=== PATIENT | male | born 1955 | race Hispanic/Latino ===

== ENCOUNTER 2017-05-09 11:43 | Inpatient (IN) | payer MEDICARE ==
[2017-05-09 12:43] LABS: SQUAMOUS EPITHIAL < 1 /hpf (0-5); URINE BILIRUBIN NEGATIVE (NEGATIVE); URINE BLOOD NEGATIVE (NEGATIVE); URINE CLARITY Clear (Clear); URINE COLOR Yellow (YELLOW); URINE GLUCOSE (UA) NORMAL (Normal); URINE LEUKOCYTE ESTERASE NEG Leu/uL (Negative); URINE NITRATE NEGATIVE (NEGATIVE); URINE PROTEIN 2+ mg/dL (NEGATIVE)
[2017-05-09 12:59] LABS: BASO # 0.1 K/uL (0.0-0.2); BASO % 1.1 % (0.0-2.0); EOS # 0.1 K/uL (0.0-0.7); EOS % 0.5 % (0.0-4.0); HEMOGLOBIN 14.9 g/dL (12.0-18.0); LYMPH # 1.8 K/uL (1.0-4.3); LYMPH % 15.3 % (20.0-40.0); MEAN CELL VOLUME 82.9 fL (80.0-94.0); MEAN CORPUSCULAR HEMOGLOBIN 27.6 pg (27.0-31.0); MEAN CORPUSCULAR HGB CONC 33.3 g/dL (33.0-37.0); MEAN PLATELET VOLUME 7.4 fL (7.2-11.7); MONO # 0.9 K/uL (0.0-0.8); MONO % 7.4 % (0.0-10.0); NEUT # 8.8 K/uL (1.8-7.0); NEUT % 75.7 % (50.0-75.0); RBC 5.41 Mil/uL (4.40-5.90); RED CELL DISTRIBUTION WIDTH 17.2 % (11.5-14.5); WHITE BLOOD COUNT 11.7 K/uL (4.8-10.8)
[2017-05-09 13:05] LABS: BARBITURATES, UR NEGATIVE (NEGATIVE); PHENCYCLIDINE, UR NEGATIVE (NEGATIVE)
--- NOTE | 2017-05-09 13:07 | C.PDOC ---
History Of Present Illness 61 y/o male with history of DM presents to ED requesting detox from Heroin. PT has been using for 10 years. Patient admits to IV heroin use and reports last used this morning. Patient states he is currently on antibiotics for skin infection. Denies history of seizures with withdrawals, other drug use or ETOH use. Patient denies any physical complaints at this time. Time Seen by Provider: 05/09/17 12:28 Chief Complaint (Nursing): Substance Abuse History Per: Patient History/Exam Limitations: no limitations Onset/Duration Of Symptoms: Days Current Symptoms Are (Timing): Still Present Suicide/Self Injury Attempted (Context): None Past Medical History Reviewed: Historical Data, Nursing Documentation, Vital Signs Vital Signs: Last Vital Signs Temp 98.1 F 05/13/17 14:07 Pulse 96 H 05/13/17 14:07 Resp 18 05/13/17 14:07 BP 111/68 05/13/17 14:07 Pulse Ox 99 05/13/17 14:07 - Medical History PMH: Diabetes Surgical History: No Surg Hx Family History: States: No Known Family Hx - Social History Hx Alcohol Use: No Hx Substance Use: Yes - Immunization History Hx Tetanus Toxoid Vaccination: No Hx Influenza Vaccination: No Review Of Systems Constitutional: Negative for: Fever, Chills Cardiovascular: Negative for: Chest Pain Respiratory: Negative for: Shortness of Breath Gastrointestinal: Negative for: Nausea, Vomiting Skin: Negative for: Rash Psych: Negative for: Anxiety, Suicidal ideation Physical Exam - Physical Exam Appears: Non-toxic, No Acute Distress, Unkempt Skin: Warm, Dry, No Rash, Other ((+) diffuse scabbing at various healing stages , no surrounding erythema or discharge) Head: Atraumatic, Normacephalic Eye(s): bilateral: Normal Inspection, EOMI Nose: Normal Oral Mucosa: Moist Neck: Normal ROM, Supple Chest: Symmetrical Cardiovascular: Rhythm Regular Respiratory: Normal Breath Sounds, No Accessory Muscle Use, No Rales, No Rhonchi , No Wheezing Gastrointestinal/Abdominal: Soft, No Tenderness, No Guarding, No Rebound Extremity: Normal ROM, Capillary Refill (<2 seconds) Neurological/Psych: Oriented x3, Normal Speech ED Course And Treatment - Laboratory Results Result Diagrams: 05/09/17 12:53 05/09/17 15:46 O2 Sat by Pulse Oximetry: 99 (RA) Pulse Ox Interpretation: Normal Progress Note: Pt was seen and evaluated by health worker who discussed case with Dr Gomez and accepted pt tp detox. Disposition - Disposition Disposition: HOSPITALIZED Disposition Time: 17:00 Condition: STABLE - Clinical Impression Clinical Impression: Opioid use disorder, severe, dependence - PA / YEAST TENDER / Resident Statement MD/DO has reviewed & agrees with the documentation as recorded. - Scribe Statement The provider has reviewed the documentation as recorded by the Yovannyibcatarina Guadarrama All medical record entries made by the Jorge were at my direction and personally dictated by me. I have reviewed the chart and agree that the record accurately reflects my personal performance of the history, physical exam, medical decision making, and the department course for this patient. I have also personally directed, reviewed, and agree with the discharge instructions and disposition.
[2017-05-09 13:12] LABS: ALBUMIN 4.6 g/dL (3.5-5.0); ALT/SGPT 28 U/L (21-72); AST/SGOT 23 U/L (17-59); BLOOD UREA NITROGEN 17 mg/dL (9-20); CALCIUM 8.8 mg/dl (8.6-10.4); GFR AFRICAN-AMERICAN > 60; GFR NON-AFRICAN AMERICAN > 60
[2017-05-09 13:16] LABS: ALB/GLOB RATIO 1.1 (1.0-2.1)
[2017-05-09] MEDS ORDERED: Sodium Chloride 0.9% 1,000 ML IV ONE ×2 (13:22)
[2017-05-09 13:28] LABS: BENZODIAZEPINES, UR POSITIVE (NEGATIVE); OPIATES, UR POSITIVE (NEGATIVE)
[2017-05-09] MEDS ORDERED: Sodium Chloride 0.9% 1,000 ML ONE (15:47)
[2017-05-09 16:14] LABS: ALB/GLOB RATIO 1.2 (1.0-2.1); ALBUMIN 4.1 g/dL (3.5-5.0); ALT/SGPT 21 U/L (21-72); AST/SGOT 24 U/L (17-59); BLOOD UREA NITROGEN 18 mg/dL (9-20); CALCIUM 8.5 mg/dl (8.6-10.4); GFR AFRICAN-AMERICAN > 60; GFR NON-AFRICAN AMERICAN > 60
--- NOTE | 2017-05-09 18:07 | PCM.BM ---
<AdarshThuya - Last Filed: 05/09/17 18:04> Treatment Plan Problems - Problems identified on initial assessmt Opiates dependence Date Initiated: 05/09/17 Time Initiated: 18:00 Assessment reference: NA Treatment assets and liabiliti Patient Assests: cooperative, ADL independent, negotiates basic needs Patient Liabilities: substance abuse - Milieu Protocol Maintain good personal hygiene: daily Encourage regular showers, daily Remind patient to perform daily oral care, daily Assist patient to perform ADL's Maintain personal safety: every shift Educate patient to report safety concerns to staff, every shift Monitor environment for contraband/sharps Medication safety: Monitor for expected outcome, potential side effects: every shift, Assess barriers to learning: every shift, Assess readiness for medication education: every shift <Casey De La Garza - Last Filed: 05/10/17 14:20> - Diagnosis (1) Opioid use disorder, severe, dependence Status: Acute Interventions: 05/10/17 14:20 * Assess 7x/week regarding severity of withdrawal * Educate regarding risks, benefits, side effects and alternatives of medications * Use Motivational Interviewing for abstinence * Use CBT for relapse prevention * Medication management for withdrawal symptoms * Encourage medication assisted treatment * (2) Sedative, hypnotic or anxiolytic dependence with withdrawal, uncomplicated Status: Acute Interventions: 05/10/17 14:20 * Assess 7x/week regarding severity of withdrawal * Educate regarding risks, benefits, side effects and alternatives of medications * Use Motivational Interviewing for abstinence * Use CBT for relapse prevention * Medication management for withdrawal symptoms * Encourage medication assisted treatment *
[2017-05-09] MEDS ORDERED: Aluminum Hydroxide/Magnesium Hydroxide Susp (30 mL) PO PRN (18:46)
[2017-05-10] MEDS: Tmp-Smz 800 mg-160 mg DS Tab PO SCH ×2 (10:57→21:54)
--- NOTE | 2017-05-10 13:48 | PCM.PSYCH ---
Initial Psychiatric Evaluation - Initial Psychiatric Evaluation Type of Admission: Voluntary Legal Status: Capacity Chief Complaint (in patient's own words): "I need help" History of Present Illness and Precipitating Events: The patient is seen, chart reviewed and case discussed. This is a 61-year-old male, single with no child, on SSI for depression and lives with his girlfriend. He is here for heroin detox and he is using 10 bags sometimes less for about 10 years now. He has been to detox 3 times in the past and rehabilitation once. On top of heroin he is using Xanax 2-4 mg, sometimes more every day. He smokes cigarettes but denies all other drugs and alcohol. The patient also has history of depression and is on Zoloft 150 mg/d Past psych hx: Few admissions for depression. Not feeling suicidal now but is depressed due to his ongoing addiction. Medical hx: Denies Family psych hx is unknown Current Medications: Active Medications Generic Name Dose Route Start Last Admin Trade Name Freq PRN Reason Stop Dose Admin Al Hydrox/Mg Hydrox/Simethicone 30 ml 05/09/17 18:46 Maalox 30 Ml PO TID PRN Indigestion / Heartburn Buprenorphine HCl 8 mg 05/11/17 10:00 Subutex SL 05/16/17 09:59 .TAPER ARASELI Taper Chlordiazepoxide 25 mg 05/10/17 12:00 05/10/17 13:33 Librium PO 05/14/17 11:59 25 mg Q6 ARASELI Administration Taper Chlordiazepoxide 25 mg 05/10/17 10:14 05/10/17 10:57 Librium PO 25 mg Q4H PRN Administration Alcohol Withdrawal Clonidine HCl 0.1 mg 05/09/17 18:29 05/09/17 18:49 Catapres PO 0.1 mg Q8 PRN Administration opiate withdrawal Gabapentin 100 mg 05/10/17 10:00 05/10/17 13:19 Neurontin PO 100 mg TID ARASELI Administration Hydroxyzine HCl 25 mg 05/09/17 18:30 05/09/17 18:49 Atarax PO 25 mg Q8 PRN Administration Anxiety Ondansetron HCl 4 mg 05/09/17 18:46 Zofran Tab PO Q8 PRN Nausea/Vomiting Pneumococcal Polyvalent Vaccine 0.5 ml 05/12/17 10:00 Pneumovax 23 Vaccine IM 05/12/17 10:01 .ONCE ONE Trimethoprim/Sulfamethoxazole 1 tab 05/10/17 10:00 05/10/17 10:57 Bactrim Ds Tab PO 05/14/17 10:01 1 tab Q12H ARASELI Administration Past Psychiatric History - Past Psychiatric History Previous Treatment History: Inpatient Pertinent Medical Hx (Current Medical&Sleep Prob, Allergies): Allergies Allergy/AdvReac Type Severity Reaction Status Date / Time No Known Allergies Allergy Unverified 05/09/17 11:55 Alprazolam [Xanax] 2 mg PO HS 05/09/17 Sertraline [Zoloft] 150 mg PO DAILY 05/09/17 Sulfamethoxazole/Trimethoprim [Bactrim DS Tab] 1 tab BID 05/09/17 Review of Systems - Neurological Neurological: UNREMARKABLE - Psychiatric Psychiatric: Abnormal Sleep Pattern, Anhedonia, Anxiety, Irritability. absent: Hallucinations, Homicidal Ideation, Suicidal Ideation Mental Status Examination - Personal Presentation Personal Presentation: Looks stated age - Affect Affect: Constricted - Motor Activity Motor Activity: Calm - Reliability in Providing Information Reliability in Providing Information: Fair - Speech Speech: Organized - Mood Mood: Depressed, Anxious - Formal Thought Process Formal Thought Process: No Impairment - Cognitive Functions Orientation: Person, Place, Situation, Time Sensorium: Alert Attention/Concentration: Attentive Estimate of Intelligence: Average Judgement: Intact, as evidence by: Insight regarding need for hospitalization Memory: Recent intact, as evidence by: Ability to recall events of the day, Remote intact, as evidenced by: Abilit to recall sig. life events - Risk Risk: Diminished functioning - Strength & Assets Inventory Strength & Assets Inventory: Cooperative - Limitations Limitations: Living alone DSM 5 DX - DSM 5 DSM 5 Diagnosis: Opioid withdrawal Opioid use d/o - severe Sedative, hypnotic or anxiolytic use d/o - severe/moderate Sedative, hypnotic or anxiolytic withdrawal Depressive d/o - unspecified - Recommended/Plan of Treatment Treatment Recommendations and Plan of Treatment: Subutex detox Gabapentin for augmentation As needed medications All risks, benefits and alternatives of the meds discussed, and the pt agreed and understood. Attend groups and activities Supportive therapy and psychoeducation AK for abstinence CBT for relapse prevention Encourage MAT Refer to rehab or IOP, and self-help groups Smoking cessation with AK Nicotine patch 34 min Projected ELOS: 4-5 days Prognosis: Good with treatment Discharge Plan and Discharge Criteria: No wdw sxs Refer to rehab or IOP/MAT - Smoking Cessation Smoking Cessation Initiated: Yes
[2017-05-11] MEDS: Tmp-Smz 800 mg-160 mg DS Tab PO SCH ×2 (09:29→21:09)
[2017-05-11] MEDS ORDERED: Buprenorphine Hydrochloride 2 mg SL SCH (10:00)
--- NOTE | 2017-05-11 22:15 | PCM.PYCHPN ---
Psychiatric Progress Note - Psychiatric Progress Note Patient seen today, length of contact: 18 min Patient Chief Complaint: "I cannot sleep" Problems Identified/Issues Discussed: The pt is seen, chart reviewed, case discussed with staff. The pt is compliant with medications and reports no side-effects. Symptoms are improving but needs more time to stabilize. After care discussed, support and psychoeducation given. Medication Change: Yes (detox changes daily, add seroquel HS) Medical Record Reviewed: Yes Mental Status Examination - Cognitive Function Orientation: Person, Place, Situation, Time Memory: Intact Attention: WNL Concentration: Poor Association: WNL Fund of Knowledge: WNL - Mood Mood: Depressed, Anxious - Affect Affect: Constricted - Speech Speech: Appropriate - Formal Thought Process Formal Thought Process: No Impairment - Suicidal Ideation Suicidal Ideation: No - Homicidal Ideation Homicidal Ideation: No Goal/Treatment Plan - Goal/Treatment Plan Need for Continued Stay: Discharge may exacerbated symptoms, Severe functional impairment Progress Toward Problem(s) and Goals/Treatment Plan: methadone detox Gabapentin for augmentation As needed medications All risks, benefits and alternatives of the meds discussed, and the pt agreed and understood. Attend groups and activities Supportive therapy and psychoeducation LA for abstinence CBT for relapse prevention Encourage MAT Refer to rehab or IOP, and self-help groups Smoking cessation with LA Nicotine patch
[2017-05-12] MEDS ORDERED: Influenza Vaccine 60 mcg/0.5 mL SYR (4YR UP) IM ONE (10:00)
[2017-05-12] MEDS ORDERED: Pneumococcal 23-Valent Vaccine IM ONE (10:00)
[2017-05-12] MEDS: Tmp-Smz 800 mg-160 mg DS Tab PO SCH ×2 (10:05→22:05)
--- NOTE | 2017-05-12 17:39 | PCM.PYCHPN ---
Psychiatric Progress Note - Psychiatric Progress Note Patient seen today, length of contact: 16 min Patient Chief Complaint: "I am OK" Problems Identified/Issues Discussed: The pt is seen, chart reviewed, case discussed with staff. Support given, CBT and OH used briefly No new symptoms reported, improving slowly and needs more time No SEs from medications, risks discussed. After care discussed Medication Change: Yes (detox changes daily) Medical Record Reviewed: Yes Mental Status Examination - Cognitive Function Orientation: Person, Place, Situation, Time Memory: Intact Attention: WNL Concentration: Poor Association: WNL Fund of Knowledge: WNL - Mood Mood: Depressed, Anxious - Affect Affect: Constricted - Speech Speech: Appropriate - Formal Thought Process Formal Thought Process: No Impairment - Suicidal Ideation Suicidal Ideation: No - Homicidal Ideation Homicidal Ideation: No Goal/Treatment Plan - Goal/Treatment Plan Need for Continued Stay: Discharge may exacerbated symptoms, Severe functional impairment Progress Toward Problem(s) and Goals/Treatment Plan: methadone detox Gabapentin for augmentation As needed medications All risks, benefits and alternatives of the meds discussed, and the pt agreed and understood. Attend groups and activities Supportive therapy and psychoeducation OH for abstinence CBT for relapse prevention Encourage MAT Refer to rehab or IOP, and self-help groups Smoking cessation with OH Nicotine patch
[2017-05-13] MEDS ORDERED: Vitamins A & D Oint UD Foilpak TOP PRN (09:07)
[2017-05-13] MEDS: Tmp-Smz 800 mg-160 mg DS Tab PO SCH (11:28)
--- NOTE | 2017-05-13 20:21 | PCM.PYCHPN ---
Psychiatric Progress Note - Psychiatric Progress Note Patient seen today, length of contact: 15 minutes Patient Chief Complaint: I'm feeling better. Can I get my Zoloft. Problems Identified/Issues Discussed: patient seen, chart reviewed, case discussed with the staff. Issues related to illness and treatment were discussed with the patient and staff. Reported compliant with treatment with No adverse affects. Patient reported feeling better, requesting for his Zoloft. Patient reported he is on Zoloft 150 mg daily. We'll start. Aftercare discussed with the patient. Patient wants to go to [facility] after discharge from the hospital for follow-up care. At the time of evaluation, patient was awake alert and oriented 3, no delusions , no auditory or visual hallucinations, no suicidal ideations or homicidal ideations. Medical Problems: None reported Diagnostic Results: Reviewed DSM 5 Symptoms Update: Improving with treatment Medication Change: Yes (Started Zoloft 150 mg daily) Medical Record Reviewed: Yes Mental Status Examination - Cognitive Function Orientation: Person, Place, Situation, Time Memory: Intact Attention: WNL Concentration: WNL Association: WNL Fund of Knowledge: [facility] Decription of patient's judgement and insights: Fair - Mood Mood: Anxious - Affect Affect: Other (Appropriate) - Speech Speech: Appropriate - Formal Thought Process Formal Thought Process: No Impairment Psychotic Thoughts and Behaviors: None - Suicidal Ideation Suicidal Ideation: No - Homicidal Ideation Homicidal Ideation: No Goal/Treatment Plan - Goal/Treatment Plan Need for Continued Stay: Remain at risks for inpatient hospitalization, Discharge may exacerbated symptoms, Severe functional impairment Progress Toward Problem(s) and Goals/Treatment Plan: Patient education. Supportive therapy. Motivational interview for abstinence. CBT for relapse prevention. Continue treatment as before. Patient will go to [facility] for follow-up care after discharge from the hospital. Estimated Date of D/C: 05/15/17 - Smoking Cessation Smoking Cessation Initiated: No
[2017-05-14 06:43] VITALS: O2SAT 100
[2017-05-14 08:43] VITALS: BP 133/91; PULSE 98; RESP 20; TEMP 98.5
--- NOTE | 2017-05-14 17:06 | PCM.PYCHDC ---
Mental Status Examination - Mental Status Examination Orientation: Person, Place, Situation, Time Memory: Intact Mood: Neutral Affect: Other (Appropriate) Speech: Appropriate Attention: WNL Concentration: WNL Association: WNL Fund of Knowledge: WNL Formal Thought Process: No Impairment Description of patient's judgement and insight: Fair Psychotic Thoughts and Behaviors: None Suicidal Ideation: No Current Homicidal Ideation?: No Discharge Summary - Discharge Note Reason for Hospitalization: Opiate and benzo use Laboratory Data: Reviewed Consultations:: List each consultation separately and include: 1. Reason for request. 2. Findings. 3. Follow-up Summary of Hospital Course include:: 1. Description of specific treatment plan utilized for patients during their course of treatmen. 2. Summarize the time- course for resolution of acute symptoms and/or regressed behaviors. 3. Describe issues identified and worked on during hospitalization. 4. Describe medication utilized. 5. Describe medical problems identified and treated. 6. Reassessment of suicide risk Summary of Hospital Course: The patient is seen, chart reviewed and case discussed. This is a 61-year-old male, single with no child, on SSI for depression and lives with his girlfriend. He is here for heroin detox and he is using 10 bags sometimes less for about 10 years now. He has been to detox 3 times in the past and rehabilitation once. On top of heroin he is using Xanax 2-4 mg, sometimes more every day. He smokes cigarettes but denies all other drugs and alcohol. The patient also has history of depression and is on Zoloft 150 mg/d Past psych hx: Few admissions for depression. Not feeling suicidal now but is depressed due to his ongoing addiction. Medical hx: Denies During his stay in the hospital patient was treated with methadone and Librium. He also got other medications including Seroquel, Zoloft, gabapentin and other when necessary medications. Patient started feeling better with above treatment. Patient attended groups and other activities on the unit as part of his treatment. Today patient was stable. His scheduled day of discharge was tomorrow but patient requested discharge for today. Patient was stable, had no withdrawal symptoms. Patient was discharged. At the time of evaluation and discharge, patient was awake alert oriented 3, had no delusions, no auditory or visual hallucinations, no suicidal ideations or homicidal ideations. Patient was discharged in a stable condition. Patient will have follow-up at [facility]. - Final Diagnosis (DSM 5) Condition upon Discharge: STABLE Disposition: HOME/ ROUTINE Follow-up Treatment Plan: Patient will go to [facility]ad[facility] for follow-up care after discharge from the hospital. Prescriptions/Medication Reconciliation: Gabapentin [Neurontin] 100 mg PO TID #90 cap QUEtiapine [Seroquel] 100 mg PO HS #30 tab Sertraline [Zoloft] 150 mg PO DAILY #30 tab - Smoking Cessation Smoking Cessation Medication prescribed: No - Antipsychotic Medications Pt discharged on 2 or more routine antipsychotic medications: No
== END 2017-05-14 11:20 | disposition home or self-care (01) | DRG 895 ==
LOC: C.ER 11:43 → C.7D 16:49
PROVIDERS: ADMIT Psychiatry & Neurology Psychiatry; ATTEND Psychiatry & Neurology Psychiatry
PROC: HZ2ZZZZ Detoxification Services for Substance Abuse Treatment (ICD-10-PCS; principal; 2017-05-09)
PROC: HZ52ZZZ Individual Psychotherapy for Substance Abuse Treatment, Cognitive-Behavioral (ICD-10-PCS; 2017-05-09)
PROC: HZ42ZZZ Group Counseling for Substance Abuse Treatment, Cognitive-Behavioral (ICD-10-PCS; 2017-05-09)
PROC: HZ59ZZZ Individual Psychotherapy for Substance Abuse Treatment, Supportive (ICD-10-PCS; 2017-05-09)
PROC: HZ56ZZZ Individual Psychotherapy for Substance Abuse Treatment, Psychoeducation (ICD-10-PCS; 2017-05-09)
PROC: HZ46ZZZ Group Counseling for Substance Abuse Treatment, Psychoeducation (ICD-10-PCS; 2017-05-09)
DX: F11.23 Opioid dependence with withdrawal (principal); F10.230 Alcohol dependence with withdrawal, uncomplicated; Y90.0 Blood alcohol level of less than 20 mg/100 ml; F13.230 Sedative, hypnotic or anxiolytic dependence with withdrawal, uncomplicated; F32.9 Major depressive disorder, single episode, unspecified; F17.210 Nicotine dependence, cigarettes, uncomplicated

== ENCOUNTER 2017-05-19 15:45 | Inpatient (IN) | payer MEDICARE ==
--- NOTE | 2017-05-19 19:14 | C.PDOC ---
History Of Present Illness 61 y/o male presents to the ER upon referral of , PCP, for skin infections with ulcerations. Patient states that he went to 's office yesterday and he recommended that he become admitted in the hospital.Patient admits to using heroin in the morning today but denies shooting drugs into his legs. Patient denies having back pain and other complaints. Time Seen by Provider: 05/19/17 19:12 Chief Complaint (Nursing): Abnormal Skin Integrity History Per: Patient History/Exam Limitations: no limitations Onset/Duration Of Symptoms: Days Current Symptoms Are (Timing): Still Present Severity: Moderate Past Medical History Reviewed: Historical Data, Nursing Documentation, Vital Signs Vital Signs: Last Vital Signs Temp 98.6 F 05/19/17 15:58 Pulse 117 H 05/19/17 15:58 Resp 20 05/19/17 15:58 BP 119/72 05/19/17 15:58 Pulse Ox 98 05/19/17 20:47 - Medical History PMH: Anxiety, Bipolar Disorder, Depression, Diabetes Denies: Hepatitis, HIV, HTN, Seizures, Sexually Transmitted Disease Other Surgeries: Hx of surgeries - [facility] Procedures DETOXIFICATION SERVICES FOR SUBSTANCE ABUSE TREATMENT (05/09/17) GROUP SURVEY RESEARCH MANAGER FOR SUBSTANCE ABUSE TREATMENT, PSYCHOEDUCATION (05/09/17) GROUP SURVEY RESEARCH MANAGER FOR SUBSTANCE ABUSE, COGNITIVE BEHAVIORAL (05/09/17) INDIV PSYCHOTHERAPY FOR SUBSTANCE ABUSE TREATMENT, SUPPORT (05/09/17) INDIV PSYCHOTHERAPY FOR SUBSTANCE ABUSE, COGNITIV BEHAVIORAL (05/09/17) INDIV PSYCHOTHERAPY FOR SUBSTANCE ABUSE, PSYCHOEDUCATION (05/09/17) Family History: States: No Known Family Hx - Social History Hx Alcohol Use: No Hx Substance Use: Yes (benzos, opioids) - Immunization History Hx Tetanus Toxoid Vaccination: No Hx Influenza Vaccination: No Review Of Systems Except As Marked, All Systems Reviewed And Found Negative. Constitutional: Negative for: Fever, Chills Musculoskeletal: Negative for: Back Pain Skin: Positive for: Other (ulcerations) Physical Exam - Physical Exam Appears: No Acute Distress, Other (tremulous) Skin: Normal Color, Warm, Other (diffuse cellulitis in bilateral upper extremities, ulcers in bilateral upper extremities) Head: Atraumatic, Normacephalic Eye(s): bilateral: Normal Inspection Nose: Normal Oral Mucosa: Moist Neck: Supple Chest: Symmetrical Cardiovascular: Rhythm Regular, No Murmur Respiratory: Normal Breath Sounds, No Accessory Muscle Use, No Rales, No Rhonchi , No Wheezing Neurological/Psych: Oriented x3, Normal Speech ED Course And Treatment - Laboratory Results Result Diagrams: 05/19/17 20:22 05/19/17 20:22 O2 Sat by Pulse Oximetry: 98 (RA) Pulse Ox Interpretation: Normal - Radiology CXR: Interpreted by Me, Viewed By Me CXR Interpretation: Yes: No Acute Disease Central Line Placement - Central Line Placement Indication: Unable To Obtain Adequate Peripheral Access Central Line Placement: Right: Internal Jugular The Area Was Thoroughly Prepared With: Draped Using Sterile Technique Area Was Locally Anesthetized With: Lidocaine 1% Procedure: Triple Lumen (under US guidance , 7 english placed at Right IJ, good blood return, fluid flowing through IV), Sterile Dressing Placed Over Line, Procedure Tolerated Well, CXR Ordered To Confirm Placement Medical Decision Making Medical Decision Making: Plan: --Labs --CXR Central line procedure done to be able to obtain labs. Disposition - Disposition Disposition Time: 21:00 Condition: FAIR - Clinical Impression Clinical Impression: Cellulitis, Opioid use disorder, severe, dependence - Scribe Statement The provider has reviewed the documentation as recorded by the Jorge Gray Provider Attestation: All medical record entries made by the Yovannyibcatarina were at my direction and personally dictated by me. I have reviewed the chart and agree that the record accurately reflects my personal performance of the history, physical exam, medical decision making, and the department course for this patient. I have also personally directed, reviewed, and agree with the discharge instructions and disposition. Decision To Admit - Pt Status Changed To: Hospital Disposition Of: Inpatient - Admit Certification Admit to Inpatient:: After my assessment, the patient will require hospitalization for at least two midnights. This is because of the severity of symptoms shown, intensity of services needed, and/or the medical risk in this patient being treated as an outpatient. - InPatient: Physician Admission Certification: I certify that this patient requires 2 or more midnights of care for the following reason:: cellulitis extensive - . Bed Request Type: Regular Admitting Physician: Floyd Botello Patient Diagnosis: Cellulitis, Opioid use disorder, severe, dependence
[2017-05-19 20:28] LABS: BASO % 0.5 % (0.0-2.0); EOS # 0.2 K/uL (0.0-0.7); EOS % 2.2 % (0.0-4.0); HEMOGLOBIN 10.7 g/dL (12.0-18.0); LYMPH % 13.9 % (20.0-40.0); MEAN CELL VOLUME 82.9 fL (80.0-94.0); MEAN CORPUSCULAR HEMOGLOBIN 28.2 pg (27.0-31.0); MEAN PLATELET VOLUME 7.2 fL (7.2-11.7); MONO # 0.5 K/uL (0.0-0.8); MONO % 7.5 % (0.0-10.0); NEUT # 5.3 K/uL (1.8-7.0); NEUT % 75.9 % (50.0-75.0); RBC 3.79 Mil/uL (4.40-5.90); RED CELL DISTRIBUTION WIDTH 17.4 % (11.5-14.5); WHITE BLOOD COUNT 7.1 K/uL (4.8-10.8)
[2017-05-19] MEDS ORDERED: cefTRIAXone 1 gm in Water For Injection 2.1 ML IM ONE (20:32)
[2017-05-19 20:35] LABS: URINE BILIRUBIN NEGATIVE (NEGATIVE); URINE BLOOD NEGATIVE (NEGATIVE); URINE CLARITY Clear (Clear); URINE COLOR Straw (YELLOW); URINE GLUCOSE (UA) NORMAL (Normal); URINE LEUKOCYTE ESTERASE NEG Leu/uL (Negative); URINE NITRATE NEGATIVE (NEGATIVE); URINE PROTEIN NEGATIVE (NEGATIVE); URINE UROBILINOGEN NORMAL mg/dL (0.2-1.0)
[2017-05-19 20:36] LABS: INR 1.1
[2017-05-19] MEDS ORDERED: cefTRIAXone IV 1 gm in Dextros 50 ML IVPB ONE (20:39)
[2017-05-19 20:41] LABS: ALB/GLOB RATIO 1.2 (1.0-2.1); ALBUMIN 3.3 g/dL (3.5-5.0); ALT/SGPT 23 U/L (21-72); AST/SGOT 17 U/L (17-59); BLOOD UREA NITROGEN 6 mg/dL (9-20); CALCIUM 8.3 mg/dl (8.6-10.4); GFR AFRICAN-AMERICAN > 60; GFR NON-AFRICAN AMERICAN > 60
[2017-05-19] MEDS ORDERED: Vancomycin 1 gm/NS 200 ml 1 GM/200 ML BAG IVPB ONE (21:00)
[2017-05-20 00:22] LABS: BARBITURATES, UR NEGATIVE (NEGATIVE); PHENCYCLIDINE, UR NEGATIVE (NEGATIVE)
[2017-05-20 00:23] LABS: BENZODIAZEPINES, UR POSITIVE (NEGATIVE); OPIATES, UR POSITIVE (NEGATIVE)
[2017-05-20] MEDS: Multiple Vitamins Tab PO SCH (11:04)
[2017-05-20] MEDS: Vancomycin 1 gm/NS 200 ml 1 GM/200 ML BAG IVPB SCH ×2 (11:05→21:34)
[2017-05-20] MEDS: Enoxaparin 40 mg Syringe SC SCH (11:05)
--- NOTE | 2017-05-20 12:31 | RAD ---
PROCEDURE: CHEST RADIOGRAPH, 1 VIEW HISTORY: SOB COMPARISON: No prior study available for comparison FINDINGS: LUNGS: Mild atelectasis seen in the both mid to lower lung hernandez. PLEURA: No pneumothorax or pleural fluid seen. CARDIOVASCULAR: Normal. OSSEOUS STRUCTURES: No significant abnormalities. VISUALIZED UPPER ABDOMEN: Normal. OTHER FINDINGS: None. IMPRESSION: Mild atelectasis both mid to lower lung zones.
--- NOTE | 2017-05-20 12:33 | RAD ---
HISTORY: Sepsis Patient COMPARISON: Comparison chest 05/19/2017 FINDINGS: Interval placement right IJ central line with tip in the SVC. LUNGS: Mild bibasilar atelectasis. PLEURA: No significant pleural effusion identified, no pneumothorax apparent. CARDIOVASCULAR: Normal. OSSEOUS STRUCTURES: No significant abnormalities. VISUALIZED UPPER ABDOMEN: Normal. OTHER FINDINGS: None. IMPRESSION: Interval placement right IJ central line with tip in the SVC. No evidence of pneumothorax. Mild bibasilar atelectasis.
[2017-05-20] MEDS ORDERED: Piperacill/Tazo 3.375gm in Dex 3.375 GM/50 ML BAG IVPB SCH (16:00)
--- NOTE | 2017-05-20 17:39 | CP.PCM.HP ---
Past Patient History - Infectious Disease Hx of Infectious Diseases: None - Past Medical History & Family History Past Medical History?: Yes - Past Social History Smoking Status: Heavy Smoker > 10 Cigarettes Daily - CARDIAC Hx Cardiac Disorders: No Hx Hypertension: No - PULMONARY Hx Respiratory Disorders: No Hx Tuberculosis: No - NEUROLOGICAL Hx Neurological Disorder: No Hx Seizures: No - HEENT Hx HEENT Problems: No - RENAL Hx Chronic Kidney Disease: No - ENDOCRINE/METABOLIC Hx Endocrine Disorders: Yes Hx Diabetes Mellitus Type 2: Yes - HEMATOLOGICAL/ONCOLOGICAL Hx Blood Disorders: No Hx Human Immunodeficiency Virus (HIV): No - INTEGUMENTARY Hx Dermatological Problems: Yes Other/Comment: Noted some lesions on arms and legs and currently on BACTRIM - MUSCULOSKELETAL/RHEUMATOLOGICAL Hx Musculoskeletal Disorders: No Hx Falls: No - GASTROINTESTINAL Hx Gastrointestinal Disorders: Yes Hx Nausea: Yes - GENITOURINARY/GYNECOLOGICAL Hx Genitourinary Disorders: No Hx Sexually Transmitted Disorders: No - PSYCHIATRIC Hx Psychophysiologic Disorder: Yes Hx Anxiety: Yes Hx Bipolar Disorder: Yes Hx Depression: Yes Hx Substance Use: Yes (benzos, opioids) - SURGICAL HISTORY Hx Surgeries: Yes Hx Orthopedic Surgery: Yes Other/Comment: Lt. knee surgery - ANESTHESIA Hx Anesthesia: Yes Hx Anesthesia Reactions: No Hx Malignant Hyperthermia: No Meds Allergies/Adverse Reactions: Allergies Allergy/AdvReac Type Severity Reaction Status Date / Time No Known Allergies Allergy Verified 05/19/17 16:03 Results - Vital Signs Recent Vital Signs: Last Vital Signs Temp 98.4 F 05/20/17 16:00 Pulse 76 05/20/17 16:00 Resp 20 05/20/17 16:00 BP 124/69 05/20/17 16:00 Pulse Ox 99 05/20/17 16:00 - Labs Result Diagrams: 05/19/17 20:22 05/19/17 20:22 Labs: Laboratory Results - last 24 hr 05/19/17 05/19/17 05/19/17 19:40 20:22 20:22 WBC 7.1 RBC 3.79 L Hgb 10.7 L D Hct 31.4 L MCV 82.9 MCH 28.2 MCHC 34.0 RDW 17.4 H Plt Count 160 D MPV 7.2 Neut % (Auto) 75.9 H Lymph % (Auto) 13.9 L [place] % (Auto) 7.5 Eos % (Auto) 2.2 Baso % (Auto) 0.5 Neut # (Auto) 5.3 Lymph # (Auto) 1.0 [place] # (Auto) 0.5 Eos # (Auto) 0.2 Baso # (Auto) 0.0 ESR 35 H PT 12.0 INR 1.1 APTT 41 H Sodium Potassium Chloride Carbon Dioxide Anion Gap BUN Creatinine Est GFR ( Amer) Est GFR (Non-Af Amer) Random Glucose Lactic Acid Calcium Total Bilirubin AST ALT Alkaline Phosphatase C-React Prot High Sens > 15.00 H Total Protein Albumin Globulin Albumin/Globulin Ratio Urine Color Urine Clarity Urine pH Ur Specific [place] Urine Protein Urine Glucose (UA) Urine Ketones Urine Blood Urine Nitrate Urine Bilirubin Urine Urobilinogen Ur Leukocyte Esterase Urine WBC (Auto) Urine RBC (Auto) Urine Opiates Screen Urine Methadone Screen Ur Barbiturates Screen Ur Phencyclidine Scrn Ur Amphetamines Screen U Benzodiazepines Scrn U Oth Cocaine Metabols U Cannabinoids Screen 05/19/17 05/19/17 05/19/17 20:22 20:22 20:22 WBC RBC Hgb Hct MCV MCH MCHC RDW Plt Count MPV Neut % (Auto) Lymph % (Auto) [place] % (Auto) Eos % (Auto) Baso % (Auto) Neut # (Auto) Lymph # (Auto) [place] # (Auto) Eos # (Auto) Baso # (Auto) ESR PT INR APTT Sodium 133 Potassium 3.7 Chloride 97 L Carbon Dioxide 29 Anion Gap 10 BUN 6 L Creatinine 0.8 Est GFR ( Amer) > 60 Est GFR (Non-Af Amer) > 60 Random Glucose 82 Lactic Acid 0.5 L Calcium 8.3 L Total Bilirubin 0.4 AST 17 D ALT 23 Alkaline Phosphatase 61 C-React Prot High Sens Total Protein 6.1 L Albumin 3.3 L Globulin 2.8 Albumin/Globulin Ratio 1.2 Urine Color Straw Urine Clarity Clear Urine pH 7.0 Ur Specific [place] 1.003 Urine Protein Negative Urine Glucose (UA) Normal Urine Ketones Negative Urine Blood Negative Urine Nitrate Negative Urine Bilirubin Negative Urine Urobilinogen Normal Ur Leukocyte Esterase Neg Urine WBC (Auto) < 1 Urine RBC (Auto) 2 Urine Opiates Screen Urine Methadone Screen Ur Barbiturates Screen Ur Phencyclidine Scrn Ur Amphetamines Screen U Benzodiazepines Scrn U Oth Cocaine Metabols U Cannabinoids Screen 05/20/17 00:03 WBC RBC Hgb Hct MCV MCH MCHC RDW Plt Count MPV Neut % (Auto) Lymph % (Auto) [place] % (Auto) Eos % (Auto) Baso % (Auto) Neut # (Auto) Lymph # (Auto) [place] # (Auto) Eos # (Auto) Baso # (Auto) ESR PT INR APTT Sodium Potassium Chloride Carbon Dioxide Anion Gap BUN Creatinine Est GFR ( Amer) Est GFR (Non-Af Amer) Random Glucose Lactic Acid Calcium Total Bilirubin AST ALT Alkaline Phosphatase C-React Prot High Sens Total Protein Albumin Globulin Albumin/Globulin Ratio Urine Color Urine Clarity Urine pH Ur Specific [place] Urine Protein Urine Glucose (UA) Urine Ketones Urine Blood Urine Nitrate Urine Bilirubin Urine Urobilinogen Ur Leukocyte Esterase Urine WBC (Auto) Urine RBC (Auto) Urine Opiates Screen Positive H Urine Methadone Screen Negative Ur Barbiturates Screen Negative Ur Phencyclidine Scrn Negative Ur Amphetamines Screen Negative U Benzodiazepines Scrn Positive U Oth Cocaine Metabols Negative U Cannabinoids Screen Negative
[2017-05-20] MEDS: Piperacillin/Tazobact 3.375 GM in Sodium Chloride 0.9% 100 ML IVPB SCH (23:32)
[2017-05-21] MEDS: Piperacillin/Tazobact 3.375 GM in Sodium Chloride 0.9% 100 ML IVPB SCH ×2 (08:16→17:00)
[2017-05-21] MEDS: Vancomycin 1 gm/NS 200 ml 1 GM/200 ML BAG IVPB SCH ×2 (09:56→21:07)
[2017-05-21] MEDS: Multiple Vitamins Tab PO SCH (09:59)
[2017-05-21] MEDS: Enoxaparin 40 mg Syringe SC SCH (10:00)
--- NOTE | 2017-05-21 14:16 | CP.PCM.PN ---
Subjective - Date & Time of Evaluation Date of Evaluation: 05/21/17 Time of Evaluation: 14:16 Objective - Vital Signs/Intake and Output Vital Signs (last 24 hours): Temp Pulse Resp BP Pulse Ox 99 F 92 H 20 153/89 H 97 05/21/17 10:06 05/21/17 08:20 05/21/17 08:20 05/21/17 08:20 05/21/17 08:20 Intake and Output: 05/21/17 05/21/17 06:59 18:59 Output Total 400 Balance -400 - Medications Medications: Current Medications Enoxaparin Sodium (Lovenox) 40 mg SC DAILY [facility] Last Admin: 05/21/17 10:00 Dose: 40 mg Folic Acid (Folic Acid) 1 mg PO DAILY [facility] Last Admin: 05/21/17 10:00 Dose: 1 mg Gabapentin (Neurontin) 100 mg PO TID [facility] Last Admin: 05/21/17 10:00 Dose: 100 mg Vancomycin/Sodium Chloride (Vancomycin 1 Gm/Ns 200 Ml) 1 gm in 200 mls @ 166.7 mls/hr IVPB Q12 [facility] Stop: 05/25/17 10:01 Last Admin: 05/21/17 09:56 Dose: 166.7 mls/hr Piperacillin Sod/Tazobactam (Sod 3.375 gm/ Sodium Chloride) 100 mls @ 200 mls/ hr IVPB Q8H [facility] Last Admin: 05/21/17 08:16 Dose: 200 mls/hr Multivitamins (Hexavitamin) 1 tab PO DAILY [facility] Last Admin: 05/21/17 09:59 Dose: 1 tab Pneumococcal Polyvalent Vaccine (Pneumovax 23 Vaccine) 0.5 ml IM .ONCE ONE Stop: 05/23/17 12:01 Quetiapine Fumarate (Seroquel) 100 mg PO HS [facility] Last Admin: 05/20/17 21:33 Dose: 100 mg Sertraline HCl (Zoloft) 150 mg PO DAILY [facility] Last Admin: 05/21/17 09:59 Dose: 150 mg Thiamine HCl (Vitamin B1 Tab) 100 mg PO DAILY [facility] Last Admin: 05/21/17 10:00 Dose: 100 mg - Labs Labs: 05/19/17 20:22 05/19/17 20:22 PT 12.0 SECONDS (9.7-12.2) 05/19/17 20:22 INR 1.1 05/19/17 20:22 APTT 41 SECONDS (21-34) H 05/19/17 20:22
--- NOTE | 2017-05-21 14:34 | PCM.PSYCH ---
Initial Psychiatric Evaluation - Initial Psychiatric Evaluation Type of Admission: Voluntary Legal Status: Capacity Current Medications: Active Medications Generic Name Dose Route Start Last Admin Trade Name Mazinq PRN Reason Stop Dose Admin Enoxaparin Sodium 40 mg 05/20/17 10:00 05/21/17 10:00 Lovenox SC 40 mg DAILY [facility] Administration Folic Acid 1 mg 05/20/17 10:00 05/21/17 10:00 Folic Acid PO 1 mg DAILY [facility] Administration Gabapentin 100 mg 05/20/17 10:00 05/21/17 10:00 Neurontin PO 100 mg TID [facility] Administration Vancomycin/Sodium Chloride 1 gm in 200 mls @ 166.7 mls/hr 05/20/17 10:00 08/02 09:56 Vancomycin 1 Gm/Ns 200 Ml IVPB 05/25/17 10:01 166.7 mls/hr Q12 [facility] Administration Piperacillin Sod/Tazobactam 100 mls @ 200 mls/hr 05/21/17 00:00 05/21/17 08: 16 Sod 3.375 gm/ Sodium Chloride IVPB 200 mls/hr Q8H [facility] Administration Multivitamins 1 tab 05/20/17 10:00 05/21/17 09:59 Hexavitamin PO 1 tab DAILY [facility] Administration Pneumococcal Polyvalent Vaccine 0.5 ml 05/23/17 12:00 Pneumovax 23 Vaccine IM 05/23/17 12:01 .ONCE ONE Quetiapine Fumarate 100 mg 05/20/17 22:00 05/20/17 21:33 Seroquel PO 100 mg HS [facility] Administration Sertraline HCl 150 mg 05/20/17 10:00 05/21/17 09:59 Zoloft PO 150 mg DAILY [facility] Administration Thiamine HCl 100 mg 05/20/17 10:00 05/21/17 10:00 Vitamin B1 Tab PO 100 mg DAILY [facility] Administration Past Psychiatric History - Past Psychiatric History Previous Treatment History: Inpatient Pertinent Medical Hx (Current Medical&Sleep Prob, Allergies): Allergies Allergy/AdvReac Type Severity Reaction Status Date / Time No Known Allergies Allergy Verified 05/19/17 16:03 Gabapentin [Neurontin] 100 mg PO TID #90 cap 05/14/17 QUEtiapine [Seroquel] 100 mg PO HS #30 tab 05/14/17 Sertraline [Zoloft] 150 mg PO DAILY #30 tab 05/14/17 Review of Systems - Review of Systems All systems: reviewed and no additional remarkable complaints except - Psychiatric Psychiatric: Anxiety, Irritability. absent: Suicidal Ideation Mental Status Examination - Personal Presentation Personal Presentation: Looks stated age - Affect Affect: Constricted - Motor Activity Motor Activity: Calm - Reliability in Providing Information Reliability in Providing Information: Good - Speech Speech: Organized - Mood Mood: Anxious - Formal Thought Process Formal Thought Process: No Impairment - Obsessions/Compulsions Obsessions: No Compulsions: No - Cognitive Functions Orientation: Person, Place, Situation, Time Sensorium: Alert Attention/Concentration: Attentive Abstract Thinking: [place] Estimate of Intelligence: Below average Judgement: Imparied, as evidence by: Poor judgement, Intact, as evidence by: Insight regarding need for hospitalization - Risk Risk: Diminished functioning - Strength & Assets Inventory Strength & Assets Inventory: Cooperative DSM 5 DX - DSM 5 DSM 5 Diagnosis: Opiate use disorder severe Opiate withdrawal 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
--- NOTE | 2017-05-21 16:45 | CP.PCM.CON ---
History of Present Illness - History of Present Illness History of Present Illness: 61 y/o male presents to the ER upon referral of , PCP, for skin infections with ulcerations. Patient states that he went to 's office yesterday and he recommended that he become admitted in the hospital.Patient admits to using heroin in the morning today but denies shooting drugs into his legs. Patient denies having back pain and other complaints. IV rx in progress pending cultures - Medical History PMH: Anxiety, Bipolar Disorder, Depression, Diabetes Denies: Hepatitis, HIV, HTN, Seizures, Sexually Transmitted Disease Other Surgeries: Hx of surgeries Review of Systems - Constitutional Constitutional: As Per HPI, Chills, Fever - EENT Eyes: absent: As Per HPI, Blind Spots, Blurred Vision, Change in Vision, Decreased Night Vision, Diplopia, Discharge, Dry Eye, Exophthalmos, Floaters, Irritation, Itchy Eyes, Loss of Peripheral Vision, Pain, Photophobia, Requires Corrective Lenses, Sees Flashes, Spots in Vision, Tunnel Vision, Other Visual Disturbances, Loss of Vision, Other Ears: absent: As Per HPI, Decreased Hearing, Ear Discharge, Ear Pain, Tinnitus, Abnormal Hearing, Disequilibrium, Dizziness, Other Nose/Mouth/Throat: absent: As Per HPI, Epistaxis, Nasal Congestion, Nasal Discharge, Nasal Obstruction, Nasal Trauma, Nose Pain, Post Nasal Drip, Sinus Pain, Sinus Pressure, Bleeding Gums, Change in Voice, Dental Pain, Dry Mouth, Dysphagia, Halitosis, Hoarsness, Lip Swelling, Mouth Lesions, Mouth Pain, Odynophagia, Sore Throat, Throat Swelling, Tongue Swelling, Facial Pain, Neck Pain, Neck Mass, Other - Cardiovascular Cardiovascular: absent: As Per HPI, Acrocyanosis, Chest Pain, Chest Pain at Rest , Chest Pain with Activity, Claudication, Diaphoresis, Dyspnea, Dyspnea on Exertion, Edema, Irregular Heart Rhythm, Pain Radiating to Arm/Neck/Jaw, Leg Edema, Leg Ulcers, Lightheadedness, Orthopnea, Palpitations, Paroxysmal Nocturnal Dyspnea, Pedal Edema, Radiating Pain, Rapid Heart Rate, Slow Heart Rate, Syncope, Other - Respiratory Respiratory: absent: As Per HPI, Cough, Dyspnea, Hemoptysis, Dyspnea on Exertion , Wheezing, Snoring, Stridor, Pain on Inspiration, Chest Congestion, Excessive Mucous Production, Change in Mucous Color, Pain with Coughing, Other - Gastrointestinal Gastrointestinal: absent: As Per HPI, Abdominal Pain, Belching, Bloating, Change in Bowel Habits, Change in Stool Character, Coffee Ground Emesis, Constipation, Cramping, Diarrhea, Dyspepsia, Dysphagia, Early Satiety, Excessive Flatus, Fecal Incontinence, Heartburn, Hematemesis, Hematochezia, Loose Stools, Melena, Nausea, Odynophagia, Temesmus, Vomiting, Other - Genitourinary Genitourinary: absent: As Per HPI, Change in Urinary Stream, Difficulty Urinating, Dysuria, Flank Pain, Hematuria, Pyuria, Nocturia, Urinary Incontinence, Urinary Frequency, Urinary Hesitance, Urinary Urgency, Voiding Freq/Small Amts, Freq UTI, Hx Renal/Bladder Calculi, Hx /Renal Surgery, Bladder Distension, Other - Musculoskeletal Musculoskeletal: As Per HPI - Integumentary Integumentary: As Per HPI, Skin Pain, Wounds - Neurological Neurological: absent: As Per HPI, Abnormal Gait, Abnormal Hearing, Abnormal Movements, Abnormal Speech, Behavioral Changes, Burning Sensations, Confusion, Convulsions, Disequilibrium, Dizziness, Numbness, Focal Weakness, Frequent Falls , Headaches, Lack of Coordination, Loss of Vision, Memory Loss, Paresthesias, Radicular Pain, Restless Legs, Sensory Deficit, Syncope, Tingling, Tremor, Vertigo, Weakness, Other Visual Disturbances, Other - Psychiatric Psychiatric: absent: As Per HPI, Abnormal Sleep Pattern, Anhedonia, Anxiety, Auditory Hallucinations, Behavioral Changes, Change in Appetite, Change in Libido, Confusion, Depression, Difficulty Concentrating, Hallucinations, Homicidal Ideation, Hopelessness, Irritability, Memory Loss, Mood Swings, Panic Attacks, Paranoia, Suicidal Ideation, Visual Hallucinations, Tactile Hallucinations, Other - Endocrine Endocrine: absent: As Per HPI, Change in Body Appearance, Change in Libido, Cold Intolorance, Deepening of Voice, Excessive Sweating, Fatigue, Flushing, Heat Intolorance, Increase in Ring/Shoe/Hat Size, Palpitations, Polydipsia, Polyphagia, Polyuria, Other - Hematologic/Lymphatic Hematologic: absent: As Per HPI, Easy Bleeding, Easy Bruising, Lymphadenopathy, Other Past Patient History - Infectious Disease Hx of Infectious Diseases: None - Past Medical History & Family History Past Medical History?: Yes - Past Social History Smoking Status: Heavy Smoker > 10 Cigarettes Daily - CARDIAC Hx Cardiac Disorders: No Hx Hypertension: No - PULMONARY Hx Respiratory Disorders: No Hx Tuberculosis: No - NEUROLOGICAL Hx Neurological Disorder: No Hx Seizures: No - HEENT Hx HEENT Problems: No - RENAL Hx Chronic Kidney Disease: No - ENDOCRINE/METABOLIC Hx Endocrine Disorders: Yes Hx Diabetes Mellitus Type 2: Yes - HEMATOLOGICAL/ONCOLOGICAL Hx Blood Disorders: No Hx Human Immunodeficiency Virus (HIV): No - INTEGUMENTARY Hx Dermatological Problems: Yes Other/Comment: Noted some lesions on arms and legs and currently on BACTRIM - MUSCULOSKELETAL/RHEUMATOLOGICAL Hx Musculoskeletal Disorders: No Hx Falls: No - GASTROINTESTINAL Hx Gastrointestinal Disorders: Yes Hx Nausea: Yes - GENITOURINARY/GYNECOLOGICAL Hx Genitourinary Disorders: No Hx Sexually Transmitted Disorders: No - PSYCHIATRIC Hx Psychophysiologic Disorder: Yes Hx Anxiety: Yes Hx Bipolar Disorder: Yes Hx Depression: Yes Hx Substance Use: Yes (benzos, opioids) - SURGICAL HISTORY Hx Surgeries: Yes Hx Orthopedic Surgery: Yes Other/Comment: Lt. knee surgery - ANESTHESIA Hx Anesthesia: Yes Hx Anesthesia Reactions: No Hx Malignant Hyperthermia: No Meds Allergies/Adverse Reactions: Allergies Allergy/AdvReac Type Severity Reaction Status Date / Time No Known Allergies Allergy Verified 05/19/17 16:03 - Medications Medications: Current Medications Enoxaparin Sodium (Lovenox) 40 mg SC DAILY [facility] Last Admin: 05/21/17 10:00 Dose: 40 mg Folic Acid (Folic Acid) 1 mg PO DAILY [facility] Last Admin: 05/21/17 10:00 Dose: 1 mg Gabapentin (Neurontin) 100 mg PO TID [facility] Last Admin: 05/21/17 14:51 Dose: 100 mg Vancomycin/Sodium Chloride (Vancomycin 1 Gm/Ns 200 Ml) 1 gm in 200 mls @ 166.7 mls/hr IVPB Q12 [facility] Stop: 05/25/17 10:01 Last Admin: 05/21/17 09:56 Dose: 166.7 mls/hr Piperacillin Sod/Tazobactam (Sod 3.375 gm/ Sodium Chloride) 100 mls @ 200 mls/ hr IVPB Q8H [facility] Last Admin: 05/21/17 08:16 Dose: 200 mls/hr Multivitamins (Hexavitamin) 1 tab PO DAILY [facility] Last Admin: 05/21/17 09:59 Dose: 1 tab Pneumococcal Polyvalent Vaccine (Pneumovax 23 Vaccine) 0.5 ml IM .ONCE ONE Stop: 05/23/17 12:01 Quetiapine Fumarate (Seroquel) 100 mg PO [facility] Last Admin: 05/20/17 21:33 Dose: 100 mg Sertraline HCl (Zoloft) 150 mg PO DAILY [facility] Last Admin: 05/21/17 09:59 Dose: 150 mg Thiamine HCl (Vitamin B1 Tab) 100 mg PO DAILY [facility] Last Admin: 05/21/17 10:00 Dose: 100 mg Physical Exam - Constitutional Appears: Non-toxic, Chronically Ill - Head Exam Head Exam: NORMOCEPHALIC - Eye Exam Eye Exam: PERRL. absent: Scleral icterus - ENT Exam ENT Exam: Mucous Membranes Dry, Normal External Ear Exam - Neck Exam Neck exam: Negative for: Lymphadenopathy - Respiratory Exam Respiratory Exam: Decreased Breath Sounds, Rhonchi - Cardiovascular Exam Cardiovascular Exam: REGULAR RHYTHM, +S1, +S2 - GI/Abdominal Exam GI & Abdominal Exam: Diminished Bowel Sounds, Soft. absent: Tenderness - Rectal Exam Rectal Exam: Deferred - Exam Exam: NORMAL INSPECTION - Extremities Exam Extremities exam: Positive for: pedal pulses present. Negative for: calf tenderness, normal inspection, pedal edema, tenderness Additional comments: wounds as noted both arms - Back Exam Back exam: absent: CVA tenderness (L), CVA tenderness (R) - Neurological Exam Neurological exam: Alert, CN II-XII Intact, Oriented x3, Reflexes Normal - Psychiatric Exam Psychiatric exam: Normal Mood - Skin Skin Exam: Dry, Intact Results - Vital Signs Recent Vital Signs: Last Vital Signs Temp 97.2 F L 05/21/17 16:00 Pulse 77 05/21/17 16:00 Resp 20 05/21/17 16:00 BP 128/70 05/21/17 16:00 Pulse Ox 99 05/21/17 16:00 - Labs Result Diagrams: 05/19/17 20:22 05/19/17 20:22 Assessment & Plan (1) Cellulitis Status: Acute (2) Opioid use disorder, severe, dependence Status: Acute (3) Sedative, hypnotic or anxiolytic dependence with withdrawal, uncomplicated Status: Acute - Assessment and Plan (Free Text) Assessment: cont rx cjheck cultures check HIV
[2017-05-22] MEDS: Piperacillin/Tazobact 3.375 GM in Sodium Chloride 0.9% 100 ML IVPB SCH ×3 (00:06→16:12)
[2017-05-22 06:40] LABS: BASO % 0.6 % (0.0-2.0); EOS # 0.2 K/uL (0.0-0.7); EOS % 3.5 % (0.0-4.0); HEMOGLOBIN 11.1 g/dL (12.0-18.0); LYMPH # 0.8 K/uL (1.0-4.3); LYMPH % 16.6 % (20.0-40.0); MEAN CELL VOLUME 84.1 fL (80.0-94.0); MEAN CORPUSCULAR HEMOGLOBIN 28.2 pg (27.0-31.0); MEAN CORPUSCULAR HGB CONC 33.5 g/dL (33.0-37.0); MEAN PLATELET VOLUME 7.5 fL (7.2-11.7); MONO # 0.3 K/uL (0.0-0.8); NEUT # 3.3 K/uL (1.8-7.0); NEUT % 73.3 % (50.0-75.0); RBC 3.95 Mil/uL (4.40-5.90); WHITE BLOOD COUNT 4.6 K/uL (4.8-10.8)
[2017-05-22 07:02] LABS: VANCOMYCIN TROUGH 12.9 ug/mL (5.0-10.0)
[2017-05-22 07:04] LABS: ALB/GLOB RATIO 1.1 (1.0-2.1); ALBUMIN 3.1 g/dL (3.5-5.0); ALT/SGPT 14 U/L (21-72); AST/SGOT 11 U/L (17-59); BLOOD UREA NITROGEN 7 mg/dL (9-20); CALCIUM 8.2 mg/dl (8.6-10.4); GFR AFRICAN-AMERICAN > 60; GFR NON-AFRICAN AMERICAN > 60
[2017-05-22 07:37] LABS: HIV 1&2 ANTIBODY NEGATIVE (NEGATIVE)
[2017-05-22 08:19] LABS: HEPATITIS B SURFACE AG Negative (NEGATIVE)
[2017-05-22 08:25] LABS: HEPATITIS A IGM NEGATIVE (NEGATIVE); HEPATITIS B CORE AB NEGATIVE (NEGATIVE)
[2017-05-22 09:29] VITALS: BP 136/80; PULSE 92; RESP 18; TEMP 98.7; O2SAT 100
[2017-05-22] MEDS ORDERED: Influenza Vaccine 60 mcg/0.5 mL SYR (4YR UP) IM ONE (10:00)
[2017-05-22 10:34] LABS: HEPATITIS C ANTIBODY REACTIVE (NEGATIVE)
[2017-05-22] MEDS: Multiple Vitamins Tab PO SCH (10:58)
[2017-05-22] MEDS: Vancomycin 1 gm/NS 200 ml 1 GM/200 ML BAG IVPB SCH (10:58)
[2017-05-22] MEDS: Enoxaparin 40 mg Syringe SC SCH (10:59)
--- NOTE | 2017-05-22 14:00 | CP.PCM.PN ---
Subjective - Date & Time of Evaluation Date of Evaluation: 05/22/17 Time of Evaluation: 13:30 - Subjective Subjective: PT SEEN WITH DR. Kelly BARCLAY DURING ROUNDS. VEHICLE WASHER DISCUSSED WITH DR BARGER ABX DURATION. HE IS RECOMMENDING 7 DAYS MORE OF ZOSYN IV AND VANCO IV. PT WOULD HAVE TO GO TO [facility] ([facility]ATEVER FACILITY APPROVES HIM, HE IS AN ACTIVE IV HEROIN ABUSER). DISCUSSED ALL OF THIS WITH THE PT AND DR COLLINS AND PT IS ADAMANTLY REFUSING TO GO TO [facility] FOR IV ABX; REFUSING TO STAY IN THE HOSPITAL FOR 7 DAYS OF IV ABX. DISCUSSED WITH DR COLLINS AND PT THAT DR BARGER MAY POSSIBLY AGREE TO PO ABX HOWEVER THE PT'S SKIN ULCERS AND SCABS ON BOTH ARMS MAY NOT IMPROVE. PT VERBALIZES THAT HE UNDERSTANDS THIS AND STILL PREFERS ORAL ABX. PT ADMITS TO VEHICLE WASHER THAT HE "SHOOTS HEROIN" INTO UPPER EXTREMITIES BUT HE DOESN'T UNDERSTAND WHY THESE SCABS HAVE DEVELOPED. VEHICLE WASHER ALSO DISCUSSED WITH THE PT THAT THE ACTION OF INJECTING SELF CONTINUOUSLY TO THE SAME AREAS WITH DRUGS CAN CAUSE SKIN ULCERATIONS, SCABBING, SWELLING AND INFECTION. STRONGLY ENCOURAGED TO STOP USING IV DRUGS. UPON D/C WITH BE PROVIDED WITH THE OUTPATIENT MENTAL HEALTH OFFICE INFORMATION. WILL F/U. Objective - Vital Signs/Intake and Output Vital Signs (last 24 hours): Temp Pulse Resp BP Pulse Ox 98.7 F 92 H 18 136/80 100 05/22/17 08:20 05/22/17 08:20 05/22/17 08:20 05/22/17 08:20 05/22/17 08:20 - Medications Medications: Current Medications Enoxaparin Sodium (Lovenox) 40 mg SC DAILY [facility] Last Admin: 05/22/17 10:59 Dose: 40 mg Folic Acid (Folic Acid) 1 mg PO DAILY [facility] Last Admin: 05/22/17 10:58 Dose: 1 mg Gabapentin (Neurontin) 100 mg PO TID [facility] Last Admin: 05/22/17 10:58 Dose: 100 mg Vancomycin/Sodium Chloride (Vancomycin 1 Gm/Ns 200 Ml) 1 gm in 200 mls @ 166.7 mls/hr IVPB Q12 [facility] Stop: 05/25/17 10:01 Last Admin: 05/22/17 10:58 Dose: 166.7 mls/hr Piperacillin Sod/Tazobactam (Sod 3.375 gm/ Sodium Chloride) 100 mls @ 200 mls/ hr IVPB Q8H [facility] Last Admin: 05/22/17 08:32 Dose: 200 mls/hr Multivitamins (Hexavitamin) 1 tab PO DAILY [facility] Last Admin: 05/22/17 10:58 Dose: 1 tab Pneumococcal Polyvalent Vaccine (Pneumovax 23 Vaccine) 0.5 ml IM .ONCE ONE Stop: 05/23/17 12:01 Quetiapine Fumarate (Seroquel) 100 mg PO HS [facility] Last Admin: 05/21/17 21:12 Dose: 100 mg Sertraline HCl (Zoloft) 150 mg PO DAILY [facility] Last Admin: 05/22/17 10:50 Dose: 150 mg Thiamine HCl (Vitamin B1 Tab) 100 mg PO DAILY [facility] Last Admin: 05/22/17 10:50 Dose: 100 mg - Labs Labs: 05/22/17 06:34 05/22/17 06:34 PT 12.0 SECONDS (9.7-12.2) 05/19/17 20:22 INR 1.1 05/19/17 20:22 APTT 41 SECONDS (21-34) H 05/19/17 20:22
[2017-05-23] MEDS ORDERED: Pneumococcal 23-Valent Vaccine IM ONE (12:00)
== END 2017-05-22 17:37 | disposition home or self-care (01) | DRG 885 ==
LOC: C.ER 15:45 → C.9E 20:44 → C.6T 23:13
PROVIDERS: ADMIT Internal Medicine Nephrology; ATTEND Internal Medicine Nephrology
DX: F33.1 Major depressive disorder, recurrent, moderate (principal); E11.9 Type 2 diabetes mellitus without complications; F11.23 Opioid dependence with withdrawal; F17.219 Nicotine dependence, cigarettes, with unspecified nicotine-induced disorders; F13.10 Sedative, hypnotic or anxiolytic abuse, uncomplicated; L03.90 Cellulitis, unspecified

== ENCOUNTER 2018-04-11 11:54 | Inpatient (IN) | payer MEDICARE ==
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
[2018-04-11] MEDS ORDERED: Vancomycin 1 GM 1 GM/250 ML BAG IV STA (12:24)
[2018-04-11] MEDS ORDERED: Cefepime 1 GM in Sodium Chloride 0.9% 50 ML IVPB ONE (12:24)
[2018-04-11 12:45] LABS: EOS # 0.1 K/uL (0.0-0.7); HEMOGLOBIN 11.6 g/dL (12.0-18.0); LYMPH # 0.4 K/uL (1.0-4.3); MEAN CORPUSCULAR HEMOGLOBIN 27.3 pg (27.0-31.0); MONO # 0.4 K/uL (0.0-0.8); WHITE BLOOD COUNT 5.6 K/uL (4.8-10.8)
[2018-04-11 12:50] LABS: BASO % 0.4 % (0.0-2.0); EOS % 1.5 % (0.0-4.0); LYMPH % 7.8 % (20.0-40.0); MEAN CELL VOLUME 83.1 fL (80.0-94.0); MEAN CORPUSCULAR HGB CONC 32.8 g/dL (33.0-37.0); MEAN PLATELET VOLUME 7.8 fL (7.2-11.7); MONO % 6.4 % (0.0-10.0); NEUT # 4.7 K/uL (1.8-7.0); NEUT % 83.9 % (50.0-75.0); RBC 4.24 Mil/uL (4.40-5.90); RED CELL DISTRIBUTION WIDTH 17.1 % (11.5-14.5)
[2018-04-11] MEDS ORDERED: Vancomycin 1 GM 1 GM/250 ML BAG IVPB ONE (12:52)
[2018-04-11 12:54] LABS: PLATELET COUNT 110 K/uL (130-400)
[2018-04-11 13:09] LABS: VENOUS BLOOD GAS BASE EXCESS -2.2 mmol/L (0.0-2.0); VENOUS BLOOD GAS PCO2 47 mmHg (40-60); VENOUS BLOOD GAS PO2 36 mm/Hg (30-55); VENOUS BLOOD PH 7.32 (7.32-7.43)
[2018-04-11 13:16] LABS: ALB/GLOB RATIO 1.2 (1.0-2.1); ALBUMIN 3.7 g/dL (3.5-5.0); ALT/SGPT 16 U/L (21-72); AST/SGOT 17 U/L (17-59); BLOOD UREA NITROGEN 13 mg/dL (9-20); CALCIUM 8.2 mg/dl (8.6-10.4); GFR NON-AFRICAN AMERICAN > 60
[2018-04-11 13:48] LABS: EOSINOPHIL 3 % (0-4); LYMPHOCYTE 8 % (20-40); MONOCYTE 7 % (0-10); NEUTROPHIL 82 % (50-75); TOTAL CELLS COUNTED 100
[2018-04-11 13:49] LABS: HYPOCHROMIC SLIGHT; PLATELET ESTIMATE SLIGHTLY DECREASED (NORMAL)
--- NOTE | 2018-04-11 14:31 | RAD ---
Date of service: 04/11/2018 PROCEDURE: CHEST RADIOGRAPH, 1 VIEW HISTORY: MURMUR COMPARISON: 05/19/2017 FINDINGS: LUNGS: Clear. PLEURA: No pneumothorax or pleural fluid seen. CARDIOVASCULAR: No aortic atherosclerotic calcification present. Normal. OSSEOUS STRUCTURES: No significant abnormalities. VISUALIZED UPPER ABDOMEN: Normal. OTHER FINDINGS: None. IMPRESSION: No active disease.
--- NOTE | 2018-04-11 14:40 | RAD ---
PROCEDURE: Right Hand Radiographs. HISTORY: cellulitis, r/o foreign body COMPARISON: None. FINDINGS: BONES: Normal. No fracture. JOINTS: Normal. No osteoarthritic changes. SOFT TISSUES: Soft tissue swelling noted over the dorsal aspect of the hand. No radiopaque foreign body identified. OTHER FINDINGS: None. IMPRESSION: No radiopaque foreign body.
[2018-04-11 14:57] LABS: ERYTHROCYTE SEDIMENTATION RATE 36 mm/hr (0-15)
--- NOTE | 2018-04-11 15:32 | CP.PCM.HP ---
Past Patient History - Infectious Disease Hx of Infectious Diseases: None - Past Medical History & Family History Past Medical History?: Yes - Past Social History Smoking Status: Heavy Smoker > 10 Cigarettes Daily - CARDIAC Hx Hypertension: No - PULMONARY Hx Respiratory Disorders: No Hx Tuberculosis: No - NEUROLOGICAL Hx Seizures: No - HEENT Hx HEENT Problems: No - RENAL Hx Chronic Kidney Disease: No - ENDOCRINE/METABOLIC Hx Endocrine Disorders: Yes Hx Diabetes Mellitus Type 2: Yes - HEMATOLOGICAL/ONCOLOGICAL Hx Human Immunodeficiency Virus (HIV): No - INTEGUMENTARY Hx Dermatological Problems: Yes Other/Comment: Noted some lesions on arms and legs and currently on BACTRIM - MUSCULOSKELETAL/RHEUMATOLOGICAL Hx Musculoskeletal Disorders: No Hx Falls: No - GASTROINTESTINAL Hx Gastrointestinal Disorders: Yes Hx Nausea: Yes - GENITOURINARY/GYNECOLOGICAL Hx Sexually Transmitted Disorders: No - PSYCHIATRIC Hx Anxiety: Yes Hx Bipolar Disorder: Yes Hx Depression: Yes Hx Substance Use: Yes (benzos, opioids, heroin) - SURGICAL HISTORY Hx Surgeries: Yes Hx Orthopedic Surgery: Yes Other/Comment: Lt. knee surgery - ANESTHESIA Hx Anesthesia: Yes Hx Anesthesia Reactions: No Hx Malignant Hyperthermia: No Meds Allergies/Adverse Reactions: Allergies Allergy/AdvReac Type Severity Reaction Status Date / Time No Known Allergies Allergy Verified 04/11/18 12:03 Physical Exam - Constitutional Appears: Well - Head Exam Head Exam: ATRAUMATIC, NORMAL INSPECTION, NORMOCEPHALIC - Eye Exam Eye Exam: EOMI, Normal appearance, PERRL Pupil Exam: NORMAL ACCOMODATION, PERRL - ENT Exam ENT Exam: Mucous Membranes Moist, Normal Exam - Neck Exam Neck exam: Positive for: Normal Inspection - Respiratory Exam Respiratory Exam: Decreased Breath Sounds - Cardiovascular Exam Cardiovascular Exam: REGULAR RHYTHM, +S1, +S2 - GI/Abdominal Exam GI & Abdominal Exam: Diminished Bowel Sounds, Soft - Rectal Exam Rectal Exam: Deferred Results - Vital Signs Recent Vital Signs: Last Vital Signs Temp 97.8 F 04/11/18 12:01 Pulse 96 H 04/11/18 12:01 Resp 18 04/11/18 12:01 BP 136/70 04/11/18 12:01 Pulse Ox 97 04/11/18 14:42 - Labs Result Diagrams: 04/11/18 12:42 04/11/18 12:42 Labs: Laboratory Results - last 24 hr 04/11/18 04/11/18 04/11/18 12:42 12:42 13:06 WBC 5.6 RBC 4.24 L Hgb 11.6 L Hct 35.2 MCV 83.1 MCH 27.3 MCHC 32.8 L RDW 17.1 H Plt Count 110 L D MPV 7.8 Neut % (Auto) 83.9 H Lymph % (Auto) 7.8 L [place] % (Auto) 6.4 Eos % (Auto) 1.5 Baso % (Auto) 0.4 Neut # (Auto) 4.7 Lymph # (Auto) 0.4 L Franklin # (Auto) 0.4 Eos # (Auto) 0.1 Baso # (Auto) 0.0 Neutrophils % (Manual) 82 H Lymphocytes % (Manual) 8 L Monocytes % (Manual) 7 Eosinophils % (Manual) 3 Platelet Estimate Slightly decreased L Hypochromasia (manual) Slight ESR 36 H pO2 36 VBG pH 7.32 VBG pCO2 47 VBG HCO3 22.3 VBG Total CO2 25.6 VBG O2 Sat (Calc) 77.8 H VBG Base Excess -2.2 L VBG Potassium 3.7 Glucose 135 H Lactate 1.7 Sodium 137 136.0 Potassium 3.7 Chloride 104 104.0 Carbon Dioxide 25 Anion Gap 12 BUN 13 Creatinine 0.9 Est GFR ( Amer) > 60 Est GFR (Non-Af Amer) > 60 Random Glucose 145 H D Calcium 8.2 L Total Bilirubin 0.7 AST 17 D ALT 16 L Alkaline Phosphatase 83 Total Protein 6.8 Albumin 3.7 Globulin 3.1 Albumin/Globulin Ratio 1.2 Venous Blood Potassium 3.7
--- NOTE | 2018-04-11 16:26 | CP.PCM.CON ---
History of Present Illness - History of Present Illness History of Present Illness: 62 y/o male, with history of heroin use IVDA, comes in to ED complaining of redness and swelling to his right hand. Patient states he woke up this morning and noticed it had extended to his right forearm. Patient had injected to his ri ght hand 3 days ago ID consulted for antibiotic management - Medical History PMH: Anxiety, Bipolar Disorder, Depression, Diabetes Denies: Hepatitis, HIV, HTN, Chronic Kidney Disease, Seizures, Sexually Transmitted Disease - [facility] Procedures DETOXIFICATION SERVICES FOR SUBSTANCE ABUSE TREATMENT (05/09/17) GROUP BOBTAIL DRIVER FOR SUBSTANCE ABUSE TREATMENT, PSYCHOEDUCATION (05/09/17) GROUP BOBTAIL DRIVER FOR SUBSTANCE ABUSE, COGNITIVE BEHAVIORAL (05/09/17) INDIV PSYCHOTHERAPY FOR SUBSTANCE ABUSE TREATMENT, SUPPORT (05/09/17) INDIV PSYCHOTHERAPY FOR SUBSTANCE ABUSE, COGNITIV BEHAVIORAL (05/09/17) INDIV PSYCHOTHERAPY FOR SUBSTANCE ABUSE, PSYCHOEDUCATION (05/09/17) Review of Systems - Constitutional Constitutional: absent: As Per HPI, Anorexia, Chills, Daytime Sleepiness, Excessive Sweating, Fatigue, Fever, Frequent Falls, Headache, Increased Appetite, Lethargy, Malaise, Night Sweats, Snoring, Sleep Apnea, Weight Gain, Weight Loss, Weakness, Other - EENT Eyes: absent: As Per HPI, Blind Spots, Blurred Vision, Change in Vision, Decreased Night Vision, Diplopia, Discharge, Dry Eye, Exophthalmos, Floaters, Irritation, Itchy Eyes, Loss of Peripheral Vision, Pain, Photophobia, Requires Corrective Lenses, Sees Flashes, Spots in Vision, Tunnel Vision, Other Visual Disturbances, Loss of Vision, Other Ears: absent: As Per HPI, Decreased Hearing, Ear Discharge, Ear Pain, Tinnitus, Abnormal Hearing, Disequilibrium, Dizziness, Other Nose/Mouth/Throat: absent: As Per HPI, Epistaxis, Nasal Congestion, Nasal Discharge, Nasal Obstruction, Nasal Trauma, Nose Pain, Post Nasal Drip, Sinus Pain, Sinus Pressure, Bleeding Gums, Change in Voice, Dental Pain, Dry Mouth, Dysphagia, Halitosis, Hoarsness, Lip Swelling, Mouth Lesions, Mouth Pain, Odynophagia, Sore Throat, Throat Swelling, Tongue Swelling, Facial Pain, Neck Pain, Neck Mass, Other - Cardiovascular Cardiovascular: absent: As Per HPI, Acrocyanosis, Chest Pain, Chest Pain at Rest, Chest Pain with Activity, Claudication, Diaphoresis, Dyspnea, Dyspnea on Exertion, Edema, Irregular Heart Rhythm, Pain Radiating to Arm/Neck/Jaw, Leg Edema, Leg Ulcers, Lightheadedness, Orthopnea, Palpitations, Paroxysmal Nocturnal Dyspnea, Pedal Edema, Radiating Pain, Rapid Heart Rate, Slow Heart Rate, Syncope, Other - Respiratory Respiratory: absent: As Per HPI, Cough, Dyspnea, Hemoptysis, Dyspnea on Exertion, Wheezing, Snoring, Stridor, Pain on Inspiration, Chest Congestion, Excessive Mucous Production, Change in Mucous Color, Pain with Coughing, Other - Gastrointestinal Gastrointestinal: absent: As Per HPI, Abdominal Pain, Belching, Bloating, Change in Bowel Habits, Change in Stool Character, Coffee Ground Emesis, Constipation, Cramping, Diarrhea, Dyspepsia, Dysphagia, Early Satiety, Excessive Flatus, Fecal Incontinence, Heartburn, Hematemesis, Hematochezia, Loose Stools, Melena, Nausea, Odynophagia, Temesmus, Vomiting, Other - Genitourinary Genitourinary: absent: As Per HPI, Change in Urinary Stream, Difficulty Urinating, Dysuria, Flank Pain, Hematuria, Pyuria, Nocturia, Urinary Incontinence, Urinary Frequency, Urinary Hesitance, Urinary Urgency, Voiding Freq/Small Amts, Freq UTI, Hx Renal/Bladder Calculi, Hx /Renal Surgery, Bladder Distension, Other - Musculoskeletal Musculoskeletal: As Per HPI - Integumentary Integumentary: As Per HPI - Neurological Neurological: absent: As Per HPI, Abnormal Gait, Abnormal Hearing, Abnormal Movements, Abnormal Speech, Behavioral Changes, Burning Sensations, Confusion, Convulsions, Disequilibrium, Dizziness, Numbness, Focal Weakness, Frequent Falls, Headaches, Lack of Coordination, Loss of Vision, Memory Loss, Paresthesias, Radicular Pain, Restless Legs, Sensory Deficit, Syncope, Tingling, Tremor, Vertigo, Weakness, Other Visual Disturbances, Other - Psychiatric Psychiatric: absent: As Per HPI, Abnormal Sleep Pattern, Anhedonia, Anxiety, Auditory Hallucinations, Behavioral Changes, Change in Appetite, Change in Libido, Confusion, Depression, Difficulty Concentrating, Hallucinations, Homicidal Ideation, Hopelessness, Irritability, Memory Loss, Mood Swings, Panic Attacks, Paranoia, Suicidal Ideation, Visual Hallucinations, Tactile Hallucinations, Other - Endocrine Endocrine: absent: As Per HPI, Change in Body Appearance, Change in Libido, Cold Intolorance, Deepening of Voice, Excessive Sweating, Fatigue, Flushing, Heat Intolorance, Increase in Ring/Shoe/Hat Size, Palpitations, Polydipsia, Polyphagia, Polyuria, Other - Hematologic/Lymphatic Hematologic: absent: As Per HPI, Easy Bleeding, Easy Bruising, Lymphadenopathy, Other Past Patient History - Infectious Disease Hx of Infectious Diseases: None - Past Medical History & Family History Past Medical History?: Yes - Past Social History Smoking Status: Heavy Smoker > 10 Cigarettes Daily - CARDIAC Hx Hypertension: No - PULMONARY Hx Respiratory Disorders: No Hx Tuberculosis: No - NEUROLOGICAL Hx Seizures: No - HEENT Hx HEENT Problems: No - RENAL Hx Chronic Kidney Disease: No - ENDOCRINE/METABOLIC Hx Endocrine Disorders: Yes Hx Diabetes Mellitus Type 2: Yes - HEMATOLOGICAL/ONCOLOGICAL Hx Human Immunodeficiency Virus (HIV): No - INTEGUMENTARY Hx Dermatological Problems: Yes Other/Comment: Noted some lesions on arms and legs and currently on BACTRIM - MUSCULOSKELETAL/RHEUMATOLOGICAL Hx Musculoskeletal Disorders: No Hx Falls: No - GASTROINTESTINAL Hx Gastrointestinal Disorders: Yes Hx Nausea: Yes - GENITOURINARY/GYNECOLOGICAL Hx Sexually Transmitted Disorders: No - PSYCHIATRIC Hx Anxiety: Yes Hx Bipolar Disorder: Yes Hx Depression: Yes Hx Substance Use: Yes (benzos, opioids, heroin) - SURGICAL HISTORY Hx Surgeries: Yes Hx Orthopedic Surgery: Yes Other/Comment: Lt. knee surgery - ANESTHESIA Hx Anesthesia: Yes Hx Anesthesia Reactions: No Hx Malignant Hyperthermia: No Meds Allergies/Adverse Reactions: Allergies Allergy/AdvReac Type Severity Reaction Status Date / Time No Known Allergies Allergy Verified 04/11/18 12:03 - Medications Medications: Current Medications Gabapentin (Neurontin) 100 mg PO TID ARASELI Vancomycin HCl 1,000 mg/ (Sodium Chloride) 250 mls @ 166.6 mls/hr IVPB Q12H ARASELI; Protocol Quetiapine Fumarate (Seroquel) 100 mg PO HS ARASELI Sertraline HCl (Zoloft) 150 mg PO DAILY ARASELI Physical Exam - Constitutional Appears: Non-toxic, Chronically Ill - Head Exam Head Exam: NORMOCEPHALIC - Eye Exam Eye Exam: absent: Scleral icterus - ENT Exam ENT Exam: Mucous Membranes Dry - Neck Exam Neck exam: Negative for: Lymphadenopathy - Respiratory Exam Respiratory Exam: Decreased Breath Sounds - Cardiovascular Exam Cardiovascular Exam: REGULAR RHYTHM - GI/Abdominal Exam GI & Abdominal Exam: Diminished Bowel Sounds, Soft. absent: Tenderness - Rectal Exam Rectal Exam: Deferred - Exam Exam: NORMAL INSPECTION - Extremities Exam Extremities exam: Positive for: pedal pulses present. Negative for: calf tenderness, pedal edema, tenderness - Back Exam Back exam: absent: CVA tenderness (L), CVA tenderness (R), paraspinal tenderness - Neurological Exam Neurological exam: Alert, CN II-XII Intact, Oriented x3, Reflexes Normal - Psychiatric Exam Psychiatric exam: Depressed - Skin Skin Exam: Erythema Additional comments: RUE cellulitis + Results - Vital Signs Recent Vital Signs: Last Vital Signs Temp 97.8 F 04/11/18 12:01 Pulse 96 H 04/11/18 12:01 Resp 18 04/11/18 12:01 BP 136/70 04/11/18 12:01 Pulse Ox 97 04/11/18 14:42 - Labs Result Diagrams: 04/11/18 12:42 04/11/18 12:42 Labs: Laboratory Results - last 24 hr 04/11/18 04/11/18 04/11/18 12:42 12:42 13:06 WBC 5.6 RBC 4.24 L Hgb 11.6 L Hct 35.2 MCV 83.1 MCH 27.3 MCHC 32.8 L RDW 17.1 H Plt Count 110 L D MPV 7.8 Neut % (Auto) 83.9 H Lymph % (Auto) 7.8 L Ogle % (Auto) 6.4 Eos % (Auto) 1.5 Baso % (Auto) 0.4 Neut # (Auto) 4.7 Lymph # (Auto) 0.4 L Ogle # (Auto) 0.4 Eos # (Auto) 0.1 Baso # (Auto) 0.0 Neutrophils % (Manual) 82 H Lymphocytes % (Manual) 8 L Monocytes % (Manual) 7 Eosinophils % (Manual) 3 Platelet Estimate Slightly decreased L Hypochromasia (manual) Slight ESR 36 H pO2 36 VBG pH 7.32 VBG pCO2 47 VBG HCO3 22.3 VBG Total CO2 25.6 VBG O2 Sat (Calc) 77.8 H VBG Base Excess -2.2 L VBG Potassium 3.7 Glucose 135 H Lactate 1.7 Sodium 137 136.0 Potassium 3.7 Chloride 104 104.0 Carbon Dioxide 25 Anion Gap 12 BUN 13 Creatinine 0.9 Est GFR ( Amer) > 60 Est GFR (Non-Af Amer) > 60 Random Glucose 145 H D Calcium 8.2 L Total Bilirubin 0.7 AST 17 D ALT 16 L Alkaline Phosphatase 83 Total Protein 6.8 Albumin 3.7 Globulin 3.1 Albumin/Globulin Ratio 1.2 Venous Blood Potassium 3.7 Assessment & Plan (1) Cellulitis Status: Acute (2) Opioid use disorder, severe, dependence Status: Acute - Assessment and Plan (Free Text) Assessment: await cultures IV antibiotics consider imaging, surgical eval check HIV Hep Panel detox counseling
[2018-04-11] MEDS: Sodium Chloride 0.9% 1,000 ML IV SCH (16:53)
[2018-04-11 18:09] VITALS: RESP 20
[2018-04-11] MEDS: Cefepime IV 1 gm in Dextrose 1 GM/50 ML BAG IVPB SCH (19:42)
--- NOTE | 2018-04-11 19:43 | CARD ---
APPROVED REPORT Date of service: 04/11/2018 EXAM: Two-dimensional and M-mode echocardiogram with Doppler and color Doppler. INDICATION Murmur R/O ENDOCARDITIS IV DRUG ABUSE 2D DIMENSIONS IVSd1.3 (0.7-1.1cm)Aortic Root (2D)3.0 (2.0-3.7cm) LVDd3.4 (3.9-5.9cm)PWd1.2 (0.7-1.1cm) LA Ilfgow64 (18-58mL)LVDs1.8 (2.5-4.0cm) FS (%) 46.3 %LVEF (%)60.0 (>50%) LVEF (Barrientos's)55.59 %IVC0.00 cm M-Mode DIMENSIONS RVDd1.15 (2.1-3.2cm)Left Atrium (MM)3.37 (2.5-4.0cm) IVSd0.73 (0.7-1.1cm)Aortic Root2.33 (2.2-3.7cm) LVDd5.22 (4.0-5.6cm)Aortic Cusp Exc.1.87 (1.5-2.0cm) PWd0.52 (0.7-1.1cm)FS (%) 40 % LVDs3.16 (2.0-3.8cm)LVEF (%)62 (>50%) Mitral Valve MV E Praflxef53.0cm/sMV A Bysszwla95.5cm/sE/A ratio0.8 TDI Lateral E' Peak V18.55cm/sMedial E' Peak V8.16cm/sE/Lateral E'3.7 E/Medial E'8.3 Tricuspid Valve TR Peak [id number]/sTR Peak [id number] LEFT VENTRICLE The left ventricle is normal size. There is mild concentric left ventricular hypertrophy. The left ventricular function is normal. The left ventricular ejection fraction is within the normal range. 56% No regional wall motion abnormalities noted. Transmitral Doppler flow pattern is Grade I-abnormal relaxation pattern. No left ventricle thrombus noted on this study. There is no ventricular septal defect visualized. There is no left ventricular aneurysm. There is no mass noted in the left ventricle. RIGHT VENTRICLE The right ventricle is normal size. There is normal right ventricular wall thickness. The right ventricular systolic function is normal. ATRIA The left atrium size is normal. The right atrium size is normal. The interatrial septum is intact with no evidence for an atrial septal defect. AORTIC VALVE The aortic valve is normal in structure and function. No aortic regurgitation is present. There is no aortic valvular stenosis. There is no aortic valvular vegetation. MITRAL VALVE The mitral valve is normal in structure and function. There is no evidence of mitral valve prolapse. There is no mitral valve stenosis. There is no mitral valve regurgitation noted. TRICUSPID VALVE The tricuspid valve is normal in structure and function. There is no tricuspid valve regurgitation noted. There is no tricuspid valve prolapse or vegetation. There is no tricuspid valve stenosis. PULMONIC VALVE The pulmonary valve is normal in structure and function. There is no pulmonic valvular regurgitation. There is no pulmonic valvular stenosis. GREAT VESSELS The aortic root is normal in size. The ascending aorta is normal in size. The pulmonary artery is normal. The IVC is normal in size and collapses >50% with inspiration. PERICARDIAL EFFUSION The pericardium appears normal. There is no pleural effusion. <Conclusion> Normal LV systolic functeion and wall motion. There is mild concentric left ventricular hypertrophy. Transmitral Doppler flow pattern is Grade I-abnormal relaxation pattern. Normal Doppler.
[2018-04-12] MEDS: Sodium Chloride 0.9% 1,000 ML IV SCH ×2 (06:05→17:01)
--- NOTE | 2018-04-12 07:33 | CP.PCM.PN ---
Subjective - Date & Time of Evaluation Date of Evaluation: 04/12/18 Time of Evaluation: 07:33 - Subjective Subjective: Medicine Progress Note - Dr Kelly Morris's Service Patient is a 62 year old male with past medical history of substance abuse who presented to the emergency department for right hand swelling. Patient states that he started experiencing right hand swelling for the past 3 days. Patient reports injecting heroin in his hands. At this time he reports having pain in the palm of his right hand. He also states that he is withdrawing from heroin. Denies fevers, chills, headaches, dizziness, cp, palpitations, sob, urinary symptoms, changes in bowel habits. Allergies: NKDA Medications: Denies Medical History: Denies Surgical History: Denies Social History: Injects 15 bags of heroin/day for last 15 years, smokes less than 1ppd, denies alcohol use Family History: Denies Objective - Vital Signs/Intake and Output Vital Signs (last 24 hours): Temp Pulse Resp BP Pulse Ox 98.2 F 82 20 101/60 99 04/11/18 23:28 04/11/18 23:28 04/11/18 23:28 04/11/18 23:28 04/11/18 23:28 Intake and Output: 04/12/18 04/12/18 06:59 18:59 Intake Total 2050 Output Total 450 Balance 1600 - Medications Medications: Current Medications Diphenhydramine HCl (Benadryl) 25 mg PO Q6H PRN PRN Reason: Agitation Folic Acid (Folic Acid) 1 mg PO DAILY [facility] Last Admin: 04/11/18 16:55 Dose: 1 mg Gabapentin (Neurontin) 100 mg PO TID [facility] Last Admin: 04/11/18 16:59 Dose: 100 mg Vancomycin HCl 1,000 mg/ (Sodium Chloride) 250 mls @ 166.6 mls/hr IVPB Q12H [facility]; Protocol Last Admin: 04/11/18 21:26 Dose: 166.6 mls/hr Sodium Chloride (Sodium Chloride 0.9%) 1,000 mls @ 80 mls/hr IV .[id number] [facility] Last Admin: 04/12/18 06:05 Dose: 80 mls/hr Cefepime HCl (Maxipime Iv 1 Gm Premix) 1 gm in 50 mls @ 100 mls/hr IVPB Q12H [facility]; Protocol Last Admin: 12/26/18 19:42 Dose: 100 mls/hr Influenza Virus Vaccine (Fluzone Quad 3130-6992) 60 mcg IM .ONCE ONE Stop: 04/13/18 10:01 Ondansetron HCl (Zofran Inj) 4 mg IVP Q8H PRN PRN Reason: Nausea/Vomiting Pneumococcal Polyvalent Vaccine (Pneumovax 23 Vaccine) 0.5 ml IM .ONCE ONE Stop: 04/13/18 10:01 Quetiapine Fumarate (Seroquel) 100 mg PO HS [facility] Last Admin: 04/11/18 21:32 Dose: 100 mg Sertraline HCl (Zoloft) 150 mg PO DAILY [facility] Thiamine HCl (Vitamin B1 Tab) 100 mg PO DAILY [facility] Last Admin: 04/11/18 16:55 Dose: 100 mg - Labs Labs: 04/11/18 12:42 04/11/18 12:42 - Constitutional Appears: Non-toxic, No Acute Distress - Head Exam Head Exam: ATRAUMATIC, NORMAL INSPECTION, NORMOCEPHALIC - Eye Exam Eye Exam: EOMI, Normal appearance - ENT Exam ENT Exam: Mucous Membranes Dry - Respiratory Exam Respiratory Exam: Clear to Ausculation Bilateral, NORMAL BREATHING PATTERN. absent: Rales, Rhonchi, Wheezes - Cardiovascular Exam Cardiovascular Exam: REGULAR RHYTHM, +S1, +S2 - GI/Abdominal Exam GI & Abdominal Exam: Soft. absent: Guarding, Rigid, Tenderness - Extremities Exam Additional comments: Right hand: edematous, +erythema, +track diaz, full ROM, sensation intact - Neurological Exam Neurological Exam: Alert, Awake, Oriented x3 - Psychiatric Exam Psychiatric exam: Normal Affect, Normal Mood - Skin Skin Exam: Dry, Normal Color, Warm Assessment and Plan - Assessment and Plan (Free Text) Assessment: Right hand cellulitis -Afebrile -Hand x ray shows soft tissue swelling, no acute fractures -IV antibiotics: Cefepime 1gm Q24H, Vancomycin 1gm Q12H -Blood cultures pending -ID on consult, Dr York, help appreciated Polysubstance abuse -Patient injects 15 bags of heroin daily in hands and legs -Echocardiogram showed mild concentric LVH -Psych on consult, help appreciated -Urine drug screen ordered Hepatits C reactive -Patient has history of IV drug abuse -Hep C viral load and genotyping ordered History of Diabetes Mellitus -HgbA1C ordered Depression/Bipolar disorder -Continue Zoloft 150mg PO daily -Seroquel 100mg PO HS Plan discussed with Dr Kelly Guerra DO PGY-2
[2018-04-12 07:52] LABS: BASO % 0.7 % (0.0-2.0); EOS # 0.1 K/uL (0.0-0.7); HEMOGLOBIN 11.8 g/dL (12.0-18.0); LYMPH # 0.6 K/uL (1.0-4.3); LYMPH % 14.1 % (20.0-40.0); MEAN CELL VOLUME 83.3 fL (80.0-94.0); MEAN CORPUSCULAR HEMOGLOBIN 27.8 pg (27.0-31.0); MEAN CORPUSCULAR HGB CONC 33.4 g/dL (33.0-37.0); MEAN PLATELET VOLUME 8.4 fL (7.2-11.7); MONO # 0.2 K/uL (0.0-0.8); MONO % 6.1 % (0.0-10.0); NEUT # 3.1 K/uL (1.8-7.0); NEUT % 76.1 % (50.0-75.0); NRBC % 0.4 % (0.0-2.0); RBC 4.25 Mil/uL (4.40-5.90); RED CELL DISTRIBUTION WIDTH 17.3 % (11.5-14.5)
[2018-04-12] MEDS: Cefepime IV 1 gm in Dextrose 1 GM/50 ML BAG IVPB SCH (08:20)
[2018-04-12 08:26] LABS: HEPATITIS B SURFACE AG Negative (NEGATIVE)
[2018-04-12 08:35] LABS: HEPATITIS A IGM NEGATIVE (NEGATIVE); HEPATITIS B CORE AB NEGATIVE (NEGATIVE)
[2018-04-12 08:40] LABS: ALB/GLOB RATIO 1.3 (1.0-2.1); ALBUMIN 3.4 g/dL (3.5-5.0); ALT/SGPT 22 U/L (21-72); AST/SGOT 13 U/L (17-59); BLOOD UREA NITROGEN 10 mg/dL (9-20); CALCIUM 8.2 mg/dl (8.6-10.4); GFR NON-AFRICAN AMERICAN > 60
[2018-04-12 10:28] LABS: HEPATITIS C ANTIBODY REACTIVE (NEGATIVE)
--- NOTE | 2018-04-12 14:04 | CP.PCM.PN ---
Subjective - Date & Time of Evaluation Date of Evaluation: 04/12/18 Time of Evaluation: 07:45 - Subjective Subjective: clinically same Objective - Vital Signs/Intake and Output Vital Signs (last 24 hours): Temp Pulse Resp BP Pulse Ox 98.1 F 83 20 119/69 97 04/12/18 08:42 04/12/18 08:42 04/12/18 08:42 04/12/18 08:42 04/12/18 08:42 Intake and Output: 04/12/18 04/12/18 06:59 18:59 Intake Total 2050 Output Total 450 Balance 1600 - Medications Medications: Current Medications Diphenhydramine HCl (Benadryl) 25 mg PO Q6H PRN PRN Reason: Agitation Folic Acid (Folic Acid) 1 mg PO DAILY [facility] Last Admin: 04/12/18 09:48 Dose: 1 mg Gabapentin (Neurontin) 100 mg PO TID [facility] Last Admin: 04/12/18 13:20 Dose: 100 mg Vancomycin HCl 1,000 mg/ (Sodium Chloride) 250 mls @ 166.6 mls/hr IVPB Q12H [facility]; Protocol Last Admin: 04/12/18 09:47 Dose: 166.6 mls/hr Sodium Chloride (Sodium Chloride 0.9%) 1,000 mls @ 80 mls/hr IV .[id number] [facility] Last Admin: 04/12/18 06:05 Dose: 80 mls/hr Cefepime HCl (Maxipime Iv 1 Gm Premix) 1 gm in 50 mls @ 100 mls/hr IVPB Q12H [facility]; Protocol Last Admin: 04/12/18 08:20 Dose: 100 mls/hr Influenza Virus Vaccine (Fluzone Quad 6013-9315) 60 mcg IM .ONCE ONE Stop: 04/13/18 10:01 Ondansetron HCl (Zofran Inj) 4 mg IVP Q8H PRN PRN Reason: Nausea/Vomiting Pneumococcal Polyvalent Vaccine (Pneumovax 23 Vaccine) 0.5 ml IM .ONCE ONE Stop: 04/13/18 10:01 Quetiapine Fumarate (Seroquel) 100 mg PO HS [facility] Last Admin: 04/11/18 21:32 Dose: 100 mg Sertraline HCl (Zoloft) 150 mg PO DAILY [facility] Last Admin: 04/12/18 09:34 Dose: 150 mg Thiamine HCl (Vitamin B1 Tab) 100 mg PO DAILY [facility] Last Admin: 04/12/18 09:46 Dose: 100 mg - Labs Labs: 04/12/18 07:47 04/12/18 07:47 - Constitutional Appears: Well - Head Exam Head Exam: ATRAUMATIC, NORMAL INSPECTION, NORMOCEPHALIC - Eye Exam Eye Exam: EOMI, Normal appearance, PERRL Pupil Exam: NORMAL ACCOMODATION, PERRL - ENT Exam ENT Exam: Mucous Membranes Moist, Normal Exam - Neck Exam Neck Exam: Full ROM, Normal Inspection. absent: Lymphadenopathy - Respiratory Exam Respiratory Exam: Decreased Breath Sounds - Cardiovascular Exam Cardiovascular Exam: REGULAR RHYTHM, +S1, +S2 - GI/Abdominal Exam GI & Abdominal Exam: Soft, Diminished Bowel Sounds - Rectal Exam Rectal Exam: Deferred
--- NOTE | 2018-04-12 15:38 | PCM.PSYCH ---
Initial Psychiatric Evaluation - Initial Psychiatric Evaluation Type of Admission: Voluntary Legal Status: Capacity Current Medications: Active Medications Generic Name Dose Route Start Last Admin Trade Name Freq PRN Reason Stop Dose Admin Diphenhydramine HCl 25 mg 04/11/18 16:34 Benadryl PO Q6H PRN Agitation Folic Acid 1 mg 04/11/18 16:45 04/12/18 09:48 Folic Acid PO 1 mg DAILY [facility] Administration Gabapentin 100 mg 04/11/18 18:00 04/12/18 13:20 Neurontin PO 100 mg TID [facility] Administration Vancomycin HCl 1,000 mg/ 250 mls @ 166.6 mls/hr 04/11/18 22:00 04/12/18 09:47 Sodium Chloride IVPB 166.6 mls/hr Q12H [facility] Administration Protocol Sodium Chloride 1,000 mls @ 80 mls/hr 04/11/18 16:45 04/12/18 06:05 Sodium Chloride 0.9% IV 80 mls/hr .[id number] [facility] Administration Cefepime HCl 1 gm in 50 mls @ 100 mls/hr 04/11/18 20:00 04/12/18 08:20 Maxipime Iv 1 Gm Premix IVPB 100 mls/hr Q12H [facility] Administration Protocol Influenza Virus Vaccine 60 mcg 04/13/18 10:00 Fluzone Quad [id number] IM 04/13/18 10:01 .ONCE ONE Ondansetron HCl 4 mg 04/11/18 16:32 Zofran Inj IVP Q8H PRN Nausea/Vomiting Pneumococcal Polyvalent Vaccine 0.5 ml 04/13/18 10:00 Pneumovax 23 Vaccine IM 04/13/18 10:01 .ONCE ONE Quetiapine Fumarate 100 mg 04/11/18 22:00 04/11/18 21:32 Seroquel PO 100 mg HS [facility] Administration Sertraline HCl 150 mg 04/12/18 10:00 04/12/18 09:34 Zoloft PO 150 mg DAILY [facility] Administration Thiamine HCl 100 mg 04/11/18 16:45 04/12/18 09:46 Vitamin B1 Tab PO 100 mg DAILY [facility] Administration Past Psychiatric History - Past Psychiatric History Pertinent Medical Hx (Current Medical&Sleep Prob, Allergies): Allergies Allergy/AdvReac Type Severity Reaction Status Date / Time No Known Allergies Allergy Verified 04/11/18 12:03 Gabapentin [Neurontin] 100 mg PO TID #90 cap 05/14/17 QUEtiapine [Seroquel] 100 mg PO HS #30 tab 05/14/17 Sertraline [Zoloft] 150 mg PO DAILY #30 tab 05/14/17
[2018-04-12 15:44] VITALS: BP 127/65; PULSE 71; TEMP 99.1
--- NOTE | 2018-04-12 16:34 | CP.PCM.PN ---
Subjective - Date & Time of Evaluation Date of Evaluation: 04/12/18 Time of Evaluation: 09:00 - Subjective Subjective: c/o pain and swelling right arm no fever iv rx adjusted Objective - Vital Signs/Intake and Output Vital Signs (last 24 hours): Temp Pulse Resp BP Pulse Ox 99.1 F 71 20 127/65 100 04/12/18 15:43 04/12/18 15:43 04/12/18 15:43 04/12/18 15:43 04/12/18 15:43 Intake and Output: 04/12/18 04/12/18 06:59 18:59 Intake Total 2050 940 Output Total 450 Balance 1600 940 - Medications Medications: Current Medications Diphenhydramine HCl (Benadryl) 25 mg PO Q6H PRN PRN Reason: Agitation Folic Acid (Folic Acid) 1 mg PO DAILY [facility] Last Admin: 04/12/18 09:48 Dose: 1 mg Gabapentin (Neurontin) 100 mg PO TID [facility] Last Admin: 04/12/18 13:20 Dose: 100 mg Vancomycin HCl 1,000 mg/ (Sodium Chloride) 250 mls @ 166.6 mls/hr IVPB Q12H [facility]; Protocol Last Admin: 04/12/18 09:47 Dose: 166.6 mls/hr Sodium Chloride (Sodium Chloride 0.9%) 1,000 mls @ 80 mls/hr IV .[id number] [facility] Last Admin: 04/12/18 06:05 Dose: 80 mls/hr Cefepime HCl (Maxipime Iv 1 Gm Premix) 1 gm in 50 mls @ 100 mls/hr IVPB Q12H [facility]; Protocol Last Admin: 04/12/18 08:20 Dose: 100 mls/hr Piperacillin Sod/Tazobactam (Sod 3.375 gm/ Sodium Chloride) 100 mls @ 200 mls/hr IVPB Q8H [facility]; Protocol Influenza Virus Vaccine (Fluzone Quad 3074-1400) 60 mcg IM .ONCE ONE Stop: 04/13/18 10:01 Ondansetron HCl (Zofran Inj) 4 mg IVP Q8H PRN PRN Reason: Nausea/Vomiting Pneumococcal Polyvalent Vaccine (Pneumovax 23 Vaccine) 0.5 ml IM .ONCE ONE Stop: 04/13/18 10:01 Quetiapine Fumarate (Seroquel) 100 mg PO HS [facility] Last Admin: 04/11/18 21:32 Dose: 100 mg Sertraline HCl (Zoloft) 150 mg PO DAILY [facility] Last Admin: 04/12/18 09:34 Dose: 150 mg Thiamine HCl (Vitamin B1 Tab) 100 mg PO DAILY [facility] Last Admin: 04/12/18 09:46 Dose: 100 mg - Labs Labs: 04/12/18 07:47 04/12/18 07:47 - Constitutional Appears: Non-toxic, Chronically Ill - Head Exam Head Exam: NORMOCEPHALIC - Eye Exam Eye Exam: absent: Scleral icterus - ENT Exam ENT Exam: Mucous Membranes Dry - Neck Exam Neck Exam: absent: Lymphadenopathy - Respiratory Exam Respiratory Exam: Decreased Breath Sounds - Cardiovascular Exam Cardiovascular Exam: REGULAR RHYTHM - GI/Abdominal Exam GI & Abdominal Exam: Distended, Soft - Rectal Exam Rectal Exam: Deferred - Exam Exam: NORMAL INSPECTION - Extremities Exam Extremities Exam: absent: Pedal Edema Additional comments: + swelling RUE - Back Exam Back Exam: absent: CVA tenderness (L), CVA tenderness (R) - Neurological Exam Neurological Exam: Alert, Awake, Oriented x3 - Psychiatric Exam Psychiatric exam: Normal Mood - Skin Skin Exam: Dry Assessment and Plan (1) Cellulitis Status: Acute (2) Opioid use disorder, severe, dependence Status: Acute - Assessment and Plan (Free Text) Assessment: RUE cellulitiis r/o foreign body, r/o nec fascitis, r/o abscess + Hep C + IVDU iv rx adjusted zosyn added for anaerobes CT RUE planned
[2018-04-12] MEDS ORDERED: Iodixanol 320 MG/ML 100 ML BOTTLE IV ONE (16:37)
[2018-04-12] MEDS ORDERED: Piperacill/Tazo 3.375gm in Dex 3.375 GM/50 ML BAG IVPB SCH (18:00)
--- NOTE | 2018-04-12 22:38 | CARD ---
APPROVED REPORT Date of service: 04/11/2018 EKG Measurement Heart [id number] <Conclusion> Normal sinus rhythm Normal ECG
[2018-04-13] MEDS ORDERED: Influenza Vaccine 60 MCG/0.5 ML SYR (3 yr & up) IM ONE (10:00)
[2018-04-13] MEDS ORDERED: Pneumococcal 23-Valent Vaccine IM ONE (10:00)
[2018-04-15 21:59] VITALS: O2SAT 97
== END 2018-04-12 18:45 | disposition home or self-care (01) | DRG 603 ==
LOC: C.ER 11:54 → C.3T 14:22
PROVIDERS: ADMIT Internal Medicine Nephrology; ATTEND Internal Medicine Nephrology
DX: L03.113 Cellulitis of right upper limb (principal); F11.20 Opioid dependence, uncomplicated; E11.9 Type 2 diabetes mellitus without complications; F31.9 Bipolar disorder, unspecified; B19.20 Unspecified viral hepatitis C without hepatic coma; F41.9 Anxiety disorder, unspecified; F17.210 Nicotine dependence, cigarettes, uncomplicated